=== PATIENT | female | born 1985 | race Caucasian/White ===

== ENCOUNTER 2019-05-11 02:46 | Inpatient (IN) | payer MEDICAID ==
[2019-05-11] MEDS ORDERED: Sodium Chloride 0.9% 10 ML SDV IV PRN (03:11)
[2019-05-11] MEDS ORDERED: Sodium Chloride 0.9% 2.5 ML Syringe FLUSH PRN (03:11)
[2019-05-11] MEDS ORDERED: Water For Irrigation,Sterile 1,000 ML Container IRR PRN (03:11)
[2019-05-11] MEDS ORDERED: Butorphanol 1 MG/ML SDV IVPUSH PRN (03:11)
[2019-05-11] MEDS ORDERED: Methylergonovine 0.2 MG/1 ML Amp IM PRN ×2 (03:11→11:47)
[2019-05-11] MEDS ORDERED: Misoprostol 200 MCG Tab PO PRN (03:11)
[2019-05-11] MEDS ORDERED: Sodium Chloride 0.9% 10 ML Syringe FLUSH PRN (03:11)
[2019-05-11] MEDS ORDERED: Tranexamic Acid 1,000 MG in Sodium Chloride 0.9% 100 ML IV PRN ×2 (03:11→11:47)
[2019-05-11] MEDS ORDERED: Carboprost Tromethamine 250 MCG/1 ML Amp IM PRN (03:11)
[2019-05-11] MEDS ORDERED: Nalbuphine 10 MG/1 ML Vial IVPUSH PRN (03:11)
[2019-05-11] MEDS ORDERED: Lidocaine 1% 50 ML MDV INJECT PRN (03:11)
[2019-05-11] MEDS ORDERED: cefTRIAXone 1 GM in Premix Bag 1 BAG IV SCH (03:15)
[2019-05-11] MEDS ORDERED: Oxytocin/0.9 % Sodium Chloride 30 UNIT/500 ML BAG IV SCH (03:15)
[2019-05-11] MEDS: Lactated Ringers 1,000 ML IV SCH ×3 (03:43→07:44)
[2019-05-11] MEDS ORDERED: fentaNYL 100 MCG/2 ML SDV ONE (04:03)
[2019-05-11] MEDS ORDERED: Ropivacaine HCl/PF 100 ML ONE (04:03)
--- NOTE | 2019-05-11 04:27 | PCM.PREANE ---
Preanesthetic Assessment - Anesthesia/Transfusion/Family Hx Anesthesia History: No Prior Anesthesia Family History of Anesthesia Reaction: No - Physical Assessment NPO Status Date: 05/10/19 NPO Status Time: 20:00 Height: 1.55 m Weight: 56.699 kg ASA Class: 1 - Lab Values: Laboratory Last Values WBC 17.02 K/uL (4.0-11.0) H 05/11/19 03:30 RBC 3.96 M/uL (4.30-5.90) L 05/11/19 03:30 Hgb 11.9 g/dL (12.0-16.0) L 05/11/19 03:30 Hct 35.3 % (36.0-46.0) L 05/11/19 03:30 MCV 89.1 fL (80.0-98.0) 05/11/19 03:30 MCH 30.1 pg (27.0-32.0) 05/11/19 03:30 MCHC 33.7 g/dL (31.0-37.0) 05/11/19 03:30 RDW Std Deviation 39.5 fl (28.0-62.0) 05/11/19 03:30 RDW Coeff of Moira 12 % (11.0-15.0) 05/11/19 03:30 Plt Count 242 K/uL (150-400) 05/11/19 03:30 MPV 9.10 fL (7.40-12.00) 05/11/19 03:30 Nucleated RBC % 0.0 /100WBC 05/11/19 03:30 Nucleated RBCs # 0 K/uL 05/11/19 03:30 Blood Type A POSITIVE 05/11/19 03:30 Antibody Screen NEGATIVE 05/11/19 03:30 - Allergies Allergies/Adverse Reactions: Allergies Allergy/AdvReac Type Severity Reaction Status Date / Time erythromycin base Allergy Hives Verified 01/11/15 14:38 mushroom Allergy Swelling Verified 01/11/15 14:38 Penicillins Allergy Hives Verified 04/02/19 20:08 - Acknowledgements Anesthesia Type Planned: Epidural Pt an Appropriate Candidate for the Planned Anesthesia: Yes Alternatives and Risks of Anesthesia Discussed w Pt/Guardian: Yes Pt/Guardian Understands and Agrees with Anesthesia Plan: Yes PreAnesthesia Questionnaire Other Genitourinary History: 'WEAK KIDNEYS" Other Neuro History: LEMERE'S SYNDROME - HOME MEDS Home Medications: Home Meds Vit 90/Iron Fum/Folic [ Formula] 1 tab PO DAILY 01/11/15 [ History] Cider Vinegar [Apple Cider Vinegar] 600 mg PO DAILY 04/02/19 [History] - CURRENT (IN HOUSE) MEDS Current Meds: Current Medications Butorphanol Tartrate (Stadol) 1 mg IVPUSH Q1H PRN PRN Reason: Pain Carboprost Tromethamine (Hemabate Ds) 250 mcg IM ASDIRECTED PRN PRN Reason: Post Hemorrhage Lactated Ringer's (Ringers, Lactated) 1,000 mls @ 150 mls/hr IV ASDIRECTED [facility] Last Admin: 05/11/19 03:43 Dose: 150 mls/hr Oxytocin/Sodium Chloride (Oxytocin 30 Unit/500 Ml-Ns) 30 unit in 500 mls @ 500 mls/hr IV TITRATE [facility] Tranexamic Acid 1,000 mg/ (Sodium Chloride) 110 mls @ 660 mls/hr IV ONETIME PRN PRN Reason: Bleeding Ceftriaxone Sodium/Dextrose 1 (gm/ Premix) 50 mls @ 100 mls/hr IV Q24H [facility] Last Admin: 05/11/19 03:43 Dose: 100 mls/hr Lidocaine HCl (Xylocaine 1%) 50 ml INJECT ONETIME PRN PRN Reason: Laceration repair Methylergonovine Maleate (Methergine) 0.2 mg IM ASDIRECTED PRN PRN Reason: Post Hemorrhage Misoprostol (Cytotec) 200 mcg PO ONETIME PRN PRN Reason: Post Hemorrhage Nalbuphine HCl (Nubain) 10 mg IVPUSH Q1H PRN PRN Reason: Pain (severe 7-10) Sodium Chloride (Saline Flush) 10 ml FLUSH ASDIRECTED PRN PRN Reason: Keep Vein Open Sodium Chloride (Saline Flush) 2.5 ml FLUSH ASDIRECTED PRN PRN Reason: Keep Vein Open Sodium Chloride (Normal Saline) 10 ml IV ASDIRECTED PRN PRN Reason: IV Use Sterile Water (Sterile Water For Irrigation) 1,000 ml IRR ASDIRECTED PRN PRN Reason: delivery Discontinued Medications Fentanyl (Sublimaze) Confirm Administered Dose 100 mcg .ROUTE .STK-MED ONE Stop: 05/11/19 04:04 Ropivacaine (Naropin 0.2%) Confirm Administered Dose 100 mls @ as directed .ROUTE .STK-MED ONE Stop: 05/11/19 04:04
--- NOTE | 2019-05-11 04:32 | PCM.PRNOTE ---
- Free Text/Narrative Note: Anes Note Patient requests epidural fro L&D. Sitting position. Sterile technique. L3-L4 midline approach. Chloraprep scrub to lumbar area. Sterile fenestrated drape applied. Epidural space easily achieved single attempt using BERNARD technique. BERNARD at 3 cm. Cath threaded 5 cm with ease. Cath secured at 9 cm using sterile clear adhesive dressing. 0420 test 3 cc 1.5% lido with epi negative. 0425 load 10 cc 0.2% ropivicaine with 1 mcg cc fentanyl in slow divided doses. 0428 pump started wtih 90 cc same solution. Rate is 8 cc hr with 6 cc bolus q 20 min prn. Jimmie well. Time with patient [id number] Darian Pino SLACKLINE OPERATOR
--- NOTE | 2019-05-11 11:46 | PCM.DEL ---
L & D Note - General Info Date of Service: 05/11/19 Mother's Due Date: 05/20/19 - Delivery Note Labor: Spontaneous, Augmented by ARM Infant Delivery Method: Spontaneous Vaginal Delivery-Single Presentation: Left Occiput Anterior (LAKSHMI) Nuchal Cord: None Prep: Other Anesthesia Type: None Amniotic Fluid Description: Meconium Stained Episiotomy Type: None Laceration: None Placenta: Manual Removal Cord: 3 Vessels Estimated Blood Loss: 300 Resuscitation Needed: No Lemmon: Suctioned Score 1 min: 9 Score 5 min: 9 Delivery Comments (Free Text/Narrative):: Liveborn male, placenta in left cornua, manually extracted, continue Rocephin, (initiated for GBS prophylaxis.) - General Info Date of Service: 05/11/19 - Patient Data Weight - Most Recent: 56.699 kg Lab Results Last 24 Hours: Laboratory Results - last 24 hr 05/11/19 05/11/19 05/11/19 Range/Units 03:30 03:30 04:54 WBC 17.02 H (4.0-11.0) K/uL RBC 3.96 L (4.30-5.90) M/uL Hgb 11.9 L (12.0-16.0) g/dL Hct 35.3 L (36.0-46.0) % MCV 89.1 (80.0-98.0) fL MCH 30.1 (27.0-32.0) pg MCHC 33.7 (31.0-37.0) g/dL RDW Std Deviation 39.5 (28.0-62.0) fl RDW Coeff of Moira 12 (11.0-15.0) % Plt Count 242 (150-400) K/uL MPV 9.10 (7.40-12.00) fL Nucleated RBC % 0.0 /100WBC Nucleated RBCs # 0 K/uL Urine Opiates Screen NEGATIVE (NEGATIVE) Ur Oxycodone Screen NEGATIVE (NEGATIVE) Urine Methadone Screen NEGATIVE (NEGATIVE) Ur Barbiturates Screen NEGATIVE (NEGATIVE) Ur Phencyclidine Scrn NEGATIVE (NEGATIVE) Ur Amphetamine Screen POSITIVE (NEGATIVE) U Methamphetamines Scrn POSITIVE (NEGATIVE) U Benzodiazepines Scrn NEGATIVE (NEGATIVE) U Cocaine Metab Screen NEGATIVE (NEGATIVE) U Marijuana (THC) Screen POSITIVE (NEGATIVE) Blood Type A POSITIVE Antibody Screen NEGATIVE Med Orders - Current: Current Medications Butorphanol Tartrate (Stadol) 1 mg IVPUSH Q1H PRN PRN Reason: Pain Carboprost Tromethamine (Hemabate Ds) 250 mcg IM ASDIRECTED PRN PRN Reason: Post Hemorrhage Lactated Ringer's (Ringers, Lactated) 1,000 mls @ 150 mls/hr IV ASDIRECTED [facility] Last Admin: 05/11/19 07:44 Dose: 150 mls/hr Oxytocin/Sodium Chloride (Oxytocin 30 Unit/500 Ml-Ns) 30 unit in 500 mls @ 500 mls/hr IV TITRATE [facility] Tranexamic Acid 1,000 mg/ (Sodium Chloride) 110 mls @ 660 mls/hr IV ONETIME PRN PRN Reason: Bleeding Ceftriaxone Sodium/Dextrose 1 (gm/ Premix) 50 mls @ 100 mls/hr IV Q24H [facility] Last Admin: 05/11/19 03:43 Dose: 100 mls/hr Lidocaine HCl (Xylocaine 1%) 50 ml INJECT ONETIME PRN PRN Reason: Laceration repair Methylergonovine Maleate (Methergine) 0.2 mg IM ASDIRECTED PRN PRN Reason: Post Hemorrhage Misoprostol (Cytotec) 200 mcg PO ONETIME PRN PRN Reason: Post Hemorrhage Nalbuphine HCl (Nubain) 10 mg IVPUSH Q1H PRN PRN Reason: Pain (severe 7-10) Sodium Chloride (Saline Flush) 10 ml FLUSH ASDIRECTED PRN PRN Reason: Keep Vein Open Sodium Chloride (Saline Flush) 2.5 ml FLUSH ASDIRECTED PRN PRN Reason: Keep Vein Open Sodium Chloride (Normal Saline) 10 ml IV ASDIRECTED PRN PRN Reason: IV Use Sterile Water (Sterile Water For Irrigation) 1,000 ml IRR ASDIRECTED PRN PRN Reason: delivery Discontinued Medications Fentanyl (Sublimaze) Confirm Administered Dose 100 mcg .ROUTE .STK-MED ONE Stop: 05/11/19 04:04 Ropivacaine (Naropin 0.2%) Confirm Administered Dose 100 mls @ as directed .ROUTE .STK-MED ONE Stop: 05/11/19 04:04 - Problem List & Annotations (1) Vaginal delivery SNOMED Code(s): 032107198 Code(s): O80 - ENCOUNTER FOR FULL-TERM UNCOMPLICATED DELIVERY Status: Acute Current Visit: Yes (2) Retained placenta SNOMED Code(s): 705224304 Code(s): O73.0 - RETAINED PLACENTA WITHOUT HEMORRHAGE Status: Acute Current Visit: Yes - Problem List Review Problem List Initiated/Reviewed/Updated: Yes - My Orders Last 24 Hours: My Active Orders 05/11/19 03:11 Patient Status [ADT] Routine Heart Tones [RC] CONTINUOUS Non Stress Test [RC] PER UNIT ROUTINE May Shower [RC] ASDIRECTED Notify Provider [RC] PRN Up ad Roslyn [RC] ASDIRECTED Vaginal Exam [RC] PRN Vital Signs [RC] PER UNIT ROUTINE Butorphanol [Stadol] 1 mg IVPUSH Q1H PRN Carboprost Tromethamine [Hemabate DS] 250 mcg IM ASDIRECTED PRN Lidocaine 1% [Xylocaine 1%] 50 ml INJECT ONETIME PRN Methylergonovine [Methergine] 0.2 mg IM ASDIRECTED PRN Nalbuphine [Nubain] 10 mg IVPUSH Q1H PRN Sodium Chloride 0.9% [Normal Saline] 10 ml IV ASDIRECTED PRN Sodium Chloride 0.9% [Saline Flush] 10 ml FLUSH ASDIRECTED PRN Sodium Chloride 0.9% [Saline Flush] 2.5 ml FLUSH ASDIRECTED PRN Tranexamic Acid [Cyklokapron] 1,000 mg Sodium Chloride 0.9% [Normal Saline] 100 ml IV ONETIME Water For Irrigation,Sterile [Sterile Water for Irrigation] 1,000 ml IRR ASDIRECTED PRN miSOPROStoL [Cytotec] 200 mcg PO ONETIME PRN Scalp Electrode [WOMSER] Per Unit Routine Peripheral IV Insertion Adult [OM.PC] Routine Resuscitation Status Routine 05/11/19 03:15 Lactated Ringers [Ringers, Lactated] 1,000 ml IV ASDIRECTED Oxytocin/0.9 % Sodium Chloride [Oxytocin 30 Unit/500 ML-NS] 30 unit in 500 ml IV TITRATE cefTRIAXone [Rocephin in Dextrose,Iso-Osm 1 GM/50 ML] 1 gm Premix Bag 1 bag IV Q24H 05/11/19 03:30 RPR (SYPHILIS SERO) W/ RFLX [REF] Routine 05/11/19 09:01 DRUG SCR 10 W REF CONF SERUM [REF] Urgent
[2019-05-11] MEDS ORDERED: Acetaminophen 500 MG Tab PO PRN (11:47)
[2019-05-11] MEDS ORDERED: Ibuprofen 400 MG Tab PO PRN (11:47)
[2019-05-11] MEDS ORDERED: Witch Hazel Medicated Pads 40/Jar TOP PRN (11:47)
[2019-05-11] MEDS ORDERED: Lanolin 100% Cream 7 GM Tube TOP PRN (11:47)
[2019-05-11] MEDS ORDERED: Docusate Sodium 100 MG Cap PO PRN (11:47)
[2019-05-11] MEDS ORDERED: Benzocaine/Menthol 20%-0.5% Spray 78 GM Cannister TOP PRN (11:47)
[2019-05-11] MEDS ORDERED: Bisacodyl 10 MG Supp RECTAL PRN (11:47)
--- NOTE | 2019-05-11 14:29 | OR ---
SURGEON: Jolene Arora M.D. DATE OF PROCEDURE: 05/11/2019 PREOPERATIVE DIAGNOSES: 38-5/7 weeks' intrauterine , active spontaneous labor, substance abuse. POSTOPERATIVE DIAGNOSES: 38-5/7 weeks' intrauterine , active spontaneous labor, substance abuse, and retained placenta. ANESTHESIA: Epidural. ESTIMATED BLOOD LOSS: 300 mL. FINDINGS: Live-born male. score 9 and 9. Weight is pending at the time of dictation. Placenta was adherent to the left uterine cornua and was manually extracted with no remnant on manual examination. COMPLICATIONS: None known. DISPOSITION: Stable to Recovery. BRIEF HISTORY: This is a 33-year-old female, G1, P0. She presents at 38-5/7 weeks' gestation. She has had occasional limited care with Dr. Vela, and she presents in active spontaneous labor, initially 3 to 4 cm dilated. She was admitted. She received an epidural for pain control when she was 6 to 7. She was known to be group B strep positive and based on the penicillin allergy, which was non- anaphylaxis and sensitivity of group B strep culture, she was started on Rocephin. After the Rocephin had been given for 4 hours, artificial rupture of membranes was performed. Thick meconium was noted. The patient agreed to urine drug screen due to history of substance abuse and incarceration and limited care, and she did agree. This was positive for amphetamines, methamphetamines, and THC. She denies all but THC. Therefore, confirmatory test was sent. She had overall category 1 heart tones throughout labor. She progressed to complete. DESCRIPTION OF PROCEDURE: With the patient in dorsal lithotomy position, under adequate epidural analgesia, the patient pushed over a 30-minute time period to a 5+ station, at which time, the head was delivered spontaneously and atraumatically over the perineum with support. The was bulb suctioned on the perineum with subsequent delivery of the infant's shoulders and body without any difficulty. The was further bulb suctioned. The face was cleaned with a towel as well as the nares. The was handed to the mother in the presence of the nurse and respiratory therapist in attendance at delivery. The infant was a liveborn male. scores of 9 and 9. Weight is pending at the time of dictation. After the cord had ceased to pulsate, it was doubly clamped and cut. Cord blood was collected for cord ABGs as well as routine cord blood sampling. Pitocin was initiated after delivery of the to assist with delivery of the placenta, which did not progress whatsoever with fundal massage as well as Pitocin. Therefore, I did proceed with manual extraction of the placenta. It was firmly adherent to the left cornu. However, I was able to define a plane and remove the entirety of the placenta with careful thorough evaluation to confirm that there were no retained products. Fundal massage was then performed. There was minimal bleeding. Upon inspection of the pelvis and perineum, there were no periurethral, vaginal sidewall, cervical, rectal, or perineal lacerations. EBL was 300 mL. There were no known complications. Mother and baby remained in LDR in good condition. ROM ARCHER /[id number]
[2019-05-11] MEDS: Ibuprofen 800 MG Tab PO PRN (16:05)
--- NOTE | 2019-05-11 17:11 | PCM48HPAN ---
Post Anesthesia Note - EVALUATION WITHIN 48HRS OF ANESTHETIC Vital Signs in Normal Range: Yes Patient Participated in Evaluation: Yes Respiratory Function Stable: Yes Airway Patent: Yes Cardiovascular Function Stable: Yes Hydration Status Stable: Yes Pain Control Satisfactory: Yes Nausea and Vomiting Control Satisfactory: Yes Mental Status Recovered: Yes Vital Signs: VSS - COMMENTS/OBSERVATIONS Free Text/Narrative:: Did well. No problems noted post.
[2019-05-12] MEDS: Ibuprofen 800 MG Tab PO PRN (01:18)
[2019-05-12] MEDS ORDERED: cefTRIAXone 1 GM in Premix Bag 1 BAG IV ONE (04:00)
[2019-05-12] MEDS: Acetaminophen 500 MG Tab PO PRN (04:19)
--- NOTE | 2019-05-12 08:32 | PCM.PNPP ---
- General Info Date of Service: 05/12/19 Subjective Update: Patient without complaints today. Minimal lochia. Functional Status: Reports: Pain Controlled, Tolerating Diet, Ambulating, Urinating - Review of Systems General: Reports: No Symptoms HEENT: Reports: No Symptoms Pulmonary: Reports: No Symptoms Cardiovascular: Reports: No Symptoms Gastrointestinal: Reports: No Symptoms Genitourinary: Reports: No Symptoms Musculoskeletal: Reports: No Symptoms Skin: Reports: No Symptoms Neurological: Reports: No Symptoms Psychiatric: Reports: No Symptoms - Patient Data Vital Signs - Most Recent: Last Vital Signs Temp 36.6 C 05/12/19 05:00 Pulse 67 05/12/19 05:00 Resp 18 05/12/19 05:00 BP 134/81 05/12/19 05:00 Pulse Ox 98 05/12/19 05:00 Weight - Most Recent: 56.699 kg Lab Results - Last 24 Hours: Laboratory Results - last 24 hr 05/11/19 05/12/19 Range/Units 12:45 04:49 Hgb 10.1 L (12.0-16.0) g/dL Hct 30.3 L (36.0-46.0) % Cord ABG pH 7.183 (7.18-7.38) Cord ABG Base Excess -9 (-10--2) Cord VBG pH 7.225 L (7.25-7.45) Cord VBG Base Excess -8 (-10--2) Med Orders - Current: Current Medications Acetaminophen (Tylenol Extra Strength) 500 mg PO Q4H PRN PRN Reason: Pain Acetaminophen (Tylenol Extra Strength) 1,000 mg PO Q4H PRN PRN Reason: Pain Last Admin: 05/12/19 04:19 Dose: 1,000 mg Benzocaine/Menthol (Dermoplast Pain Relief 20%-0.5% [place]) 78 gm TOP ASDIRECTED PRN PRN Reason: Perineal Comfort Measure Last Admin: 05/11/19 16:04 Dose: 1 canister Bisacodyl (Dulcolax) 10 mg RECTAL ONETIME PRN PRN Reason: Constipation Docusate Sodium (Colace) 100 mg PO BID PRN PRN Reason: Constipation Last Admin: 05/11/19 20:23 Dose: 100 mg Emollient Ointment (Lansinoh Hpa) 0 gm TOP ASDIRECTED PRN PRN Reason: Sore Nipples Tranexamic Acid 1,000 mg/ (Sodium Chloride) 110 mls @ 660 mls/hr IV ONETIME PRN PRN Reason: Bleeding Ibuprofen (Motrin) 400 mg PO Q4H PRN PRN Reason: Pain Ibuprofen (Motrin) 800 mg PO Q6H PRN PRN Reason: Pain Last Admin: 05/12/19 01:18 Dose: 800 mg Methylergonovine Maleate (Methergine) 0.2 mg IM ONETIME PRN PRN Reason: Excessive Vaginal Bleeding Blade Crouch (Tucks) 1 pad TOP ASDIRECTED PRN PRN Reason: comfort care Last Admin: 05/11/19 16:05 Dose: 1 tub Discontinued Medications Butorphanol Tartrate (Stadol) 1 mg IVPUSH Q1H PRN PRN Reason: Pain Carboprost Tromethamine (Hemabate Ds) 250 mcg IM ASDIRECTED PRN PRN Reason: Post Hemorrhage Fentanyl (Sublimaze) Confirm Administered Dose 100 mcg .ROUTE .STK-MED ONE Stop: 05/11/19 04:04 Lactated Ringer's (Ringers, Lactated) 1,000 mls @ 150 mls/hr IV ASDIRECTED [facility] Last Admin: 05/11/19 07:44 Dose: 150 mls/hr Oxytocin/Sodium Chloride (Oxytocin 30 Unit/500 Ml-Ns) 30 unit in 500 mls @ 500 mls/hr IV TITRATE [facility] Last Infusion: 05/11/19 11:24 Dose: 500 mls/hr Tranexamic Acid 1,000 mg/ (Sodium Chloride) 110 mls @ 660 mls/hr IV ONETIME PRN PRN Reason: Bleeding Ceftriaxone Sodium/Dextrose 1 (gm/ Premix) 50 mls @ 100 mls/hr IV Q24H [facility] Last Admin: 05/11/19 03:43 Dose: 100 mls/hr Ropivacaine (Naropin 0.2%) Confirm Administered Dose 100 mls @ as directed .ROUTE .STK-MED ONE Stop: 05/11/19 04:04 Ceftriaxone Sodium/Dextrose 1 (gm/ Premix) 50 mls @ 100 mls/hr IV ONETIME ONE Stop: 05/12/19 04:29 Last Admin: 05/12/19 03:18 Dose: 100 mls/hr Lidocaine HCl (Xylocaine 1%) 50 ml INJECT ONETIME PRN PRN Reason: Laceration repair Methylergonovine Maleate (Methergine) 0.2 mg IM ASDIRECTED PRN PRN Reason: Post Hemorrhage Misoprostol (Cytotec) 200 mcg PO ONETIME PRN PRN Reason: Post Hemorrhage Nalbuphine HCl (Nubain) 10 mg IVPUSH Q1H PRN PRN Reason: Pain (severe 7-10) Sodium Chloride (Saline Flush) 10 ml FLUSH ASDIRECTED PRN PRN Reason: Keep Vein Open Sodium Chloride (Saline Flush) 2.5 ml FLUSH ASDIRECTED PRN PRN Reason: Keep Vein Open Sodium Chloride (Normal Saline) 10 ml IV ASDIRECTED PRN PRN Reason: IV Use Sterile Water (Sterile Water For Irrigation) 1,000 ml IRR ASDIRECTED PRN PRN Reason: delivery Last Admin: 05/11/19 11:15 Dose: 1,000 ml - Interaction Infant Disposition, : to Nursery Interaction: Unable to Hold at this Time Support Person: Significant Other - Recovery Exam Fundal Tone: Firm Fundal Level: 2 Fingerbreadths Below Umbilicus Fundal Placement: Midline Lochia Amount: Small Lochia Color: Rubra/Red Bladder Status: Voiding Urinary Elimination: Voided - Exam General: Alert, Oriented Neck: Supple Lungs: Clear to Auscultation, Normal Respiratory Effort Cardiovascular: Regular Rate, Regular Rhythm GI/Abdominal Exam: Soft, Non-Tender Extremities: No Pedal Edema Skin: Warm, Dry, Intact Neurological: No New Focal Deficit Psy/Mental Status: Alert, Normal Affect, Normal Mood - Problem List & Annotations (1) Retained placenta SNOMED Code(s): 472338363 Code(s): O73.0 - RETAINED PLACENTA WITHOUT HEMORRHAGE Status: Acute Current Visit: Yes (2) Vaginal delivery SNOMED Code(s): 050814928 Code(s): O80 - ENCOUNTER FOR FULL-TERM UNCOMPLICATED DELIVERY Status: Acute Current Visit: Yes - Problem List Review Problem List Initiated/Reviewed/Updated: Yes - Assessment Assessment:: PPD#1 s/p and manual extraction of placenta - Plan Plan:: 1. Manual extraction of placenta - intact on exam by Dr. Arora. Minimal lochia, no concern for retained products of conception. 2. Dispo - patient desires discharge home today. Reviewed discharge instructions. All questions answered.
[2019-05-13] MEDS: Ibuprofen 800 MG Tab PO PRN (00:17)
[2019-05-13] MEDS: Acetaminophen 500 MG Tab PO PRN (04:27)
--- NOTE | 2019-05-13 08:12 | PCM.PNPP ---
- General Info Date of Service: 05/13/19 Subjective Update: Patient without complaints today. Minimal lochia. Functional Status: Reports: Pain Controlled, Tolerating Diet, Ambulating, Urinating - Review of Systems General: Reports: No Symptoms HEENT: Reports: No Symptoms Pulmonary: Reports: No Symptoms Cardiovascular: Reports: No Symptoms Gastrointestinal: Reports: No Symptoms Genitourinary: Reports: No Symptoms Musculoskeletal: Reports: No Symptoms Skin: Reports: No Symptoms Neurological: Reports: No Symptoms Psychiatric: Reports: No Symptoms - Patient Data Vital Signs - Most Recent: Last Vital Signs Temp 36.6 C 05/13/19 04:15 Pulse 69 05/13/19 04:15 Resp 16 05/13/19 04:15 BP 111/78 05/13/19 04:15 Pulse Ox 98 05/13/19 04:15 Weight - Most Recent: 56.699 kg Med Orders - Current: Current Medications Acetaminophen (Tylenol Extra Strength) 500 mg PO Q4H PRN PRN Reason: Pain Acetaminophen (Tylenol Extra Strength) 1,000 mg PO Q4H PRN PRN Reason: Pain Last Admin: 05/13/19 04:27 Dose: 1,000 mg Benzocaine/Menthol (Dermoplast Pain Relief 20%-0.5% [place]) 78 gm TOP ASDIRECTED PRN PRN Reason: Perineal Comfort Measure Last Admin: 05/11/19 16:04 Dose: 1 canister Bisacodyl (Dulcolax) 10 mg RECTAL ONETIME PRN PRN Reason: Constipation Docusate Sodium (Colace) 100 mg PO BID PRN PRN Reason: Constipation Last Admin: 05/11/19 20:23 Dose: 100 mg Emollient Ointment (Lansinoh Hpa) 0 gm TOP ASDIRECTED PRN PRN Reason: Sore Nipples Tranexamic Acid 1,000 mg/ (Sodium Chloride) 110 mls @ 660 mls/hr IV ONETIME PRN PRN Reason: Bleeding Ibuprofen (Motrin) 400 mg PO Q4H PRN PRN Reason: Pain Ibuprofen (Motrin) 800 mg PO Q6H PRN PRN Reason: Pain Last Admin: 05/13/19 00:17 Dose: 800 mg Methylergonovine Maleate (Methergine) 0.2 mg IM ONETIME PRN PRN Reason: Excessive Vaginal Bleeding Witch Willa (Tucks) 1 pad TOP ASDIRECTED PRN PRN Reason: comfort care Last Admin: 05/11/19 16:05 Dose: 1 tub Discontinued Medications Butorphanol Tartrate (Stadol) 1 mg IVPUSH Q1H PRN PRN Reason: Pain Carboprost Tromethamine (Hemabate Ds) 250 mcg IM ASDIRECTED PRN PRN Reason: Post Hemorrhage Fentanyl (Sublimaze) Confirm Administered Dose 100 mcg .ROUTE .[facility] ONE Stop: 05/11/19 04:04 Lactated Ringer's (Ringers, Lactated) 1,000 mls @ 150 mls/hr IV ASDIRECTED [facility] Last Admin: 05/11/19 07:44 Dose: 150 mls/hr Oxytocin/Sodium Chloride (Oxytocin 30 Unit/500 Ml-Ns) 30 unit in 500 mls @ 500 mls/hr IV TITRATE [facility] Last Infusion: 05/11/19 11:24 Dose: 500 mls/hr Tranexamic Acid 1,000 mg/ (Sodium Chloride) 110 mls @ 660 mls/hr IV ONETIME PRN PRN Reason: Bleeding Ceftriaxone Sodium/Dextrose 1 (gm/ Premix) 50 mls @ 100 mls/hr IV Q24H [facility] Last Admin: 05/11/19 03:43 Dose: 100 mls/hr Ropivacaine (Naropin 0.2%) Confirm Administered Dose 100 mls @ as directed .ROUTE .[facility] ONE Stop: 05/11/19 04:04 Ceftriaxone Sodium/Dextrose 1 (gm/ Premix) 50 mls @ 100 mls/hr IV ONETIME ONE Stop: 05/12/19 04:29 Last Admin: 05/12/19 03:18 Dose: 100 mls/hr Lidocaine HCl (Xylocaine 1%) 50 ml INJECT ONETIME PRN PRN Reason: Laceration repair Methylergonovine Maleate (Methergine) 0.2 mg IM ASDIRECTED PRN PRN Reason: Post Hemorrhage Misoprostol (Cytotec) 200 mcg PO ONETIME PRN PRN Reason: Post Hemorrhage Nalbuphine HCl (Nubain) 10 mg IVPUSH Q1H PRN PRN Reason: Pain (severe 7-10) Sodium Chloride (Saline Flush) 10 ml FLUSH ASDIRECTED PRN PRN Reason: Keep Vein Open Sodium Chloride (Saline Flush) 2.5 ml FLUSH ASDIRECTED PRN PRN Reason: Keep Vein Open Sodium Chloride (Normal Saline) 10 ml IV ASDIRECTED PRN PRN Reason: IV Use Sterile Water (Sterile Water For Irrigation) 1,000 ml IRR ASDIRECTED PRN PRN Reason: delivery Last Admin: 05/11/19 11:15 Dose: 1,000 ml - Infant Interaction Disposition, : at Bedside Support Person: Mother - Recovery Exam Fundal Tone: Firm Fundal Level: 3 Fingerbreadths Below Umbilicus Fundal Placement: Midline Lochia Amount: Scant Lochia Color: Rubra/Red Bladder Status: Voiding Urinary Elimination: Voided - Exam General: Alert, Oriented Neck: Supple Lungs: Clear to Auscultation, Normal Respiratory Effort Cardiovascular: Regular Rate, Regular Rhythm GI/Abdominal Exam: Soft, Non-Tender Extremities: Non-Tender Skin: Warm, Dry, Intact Neurological: No New Focal Deficit Psy/Mental Status: Alert, Normal Affect, Normal Mood - Problem List & Annotations (1) Retained placenta SNOMED Code(s): 474583817 Code(s): O73.0 - RETAINED PLACENTA WITHOUT HEMORRHAGE Status: Acute Current Visit: Yes (2) Vaginal delivery SNOMED Code(s): 079630154 Code(s): O80 - ENCOUNTER FOR FULL-TERM UNCOMPLICATED DELIVERY Status: Acute Current Visit: Yes - Problem List Review Problem List Initiated/Reviewed/Updated: Yes - My Orders Last 24 Hours: My Active Orders 05/12/19 08:33 Ready for Discharge [RC] PER UNIT ROUTINE 05/13/19 08:10 Ready for Discharge [RC] PER UNIT ROUTINE - Assessment Assessment:: PPD#2 s/p and manual extraction of placenta - Plan Plan:: 1. Manual extraction of placenta - intact on exam by Dr. Arora. Minimal lochia, no concern for retained products of conception. 2. Methamphetamine, marijuana use - child protective services involved, plan in place. 3. Dispo - patient desires discharge home today. Reviewed discharge instructions. All questions answered.
[2019-05-13 13:11] VITALS: BP 106/60; PULSE 63
== END 2019-05-13 16:10 | disposition home or self-care (01) | DRG 807 ==
LOC: MW.OBCHECK 02:46 → MW.OB 02:47 → MW.OBCHECK 03:11 → OBSVTOIN 11:18 → MW.OB 17:22
PROVIDERS: ADMIT Obstetrics & Gynecology; ATTEND Obstetrics & Gynecology
PROC: 10E0XZZ Delivery of Products of Conception, External Approach (ICD-10-PCS; principal; 2019-05-11)
PROC: 10907ZC Drainage of Amniotic Fluid, Therapeutic from Products of Conception, Via Natural or Artificial Opening (ICD-10-PCS; 2019-05-11)
PROC: 3E0R3BZ Introduction of Anesthetic Agent into Spinal Canal, Percutaneous Approach (ICD-10-PCS; 2019-05-11)
DX: O99.824 Streptococcus B carrier state complicating childbirth (principal); Z37.0 Single live birth; O77.0 Labor and delivery complicated by meconium in amniotic fluid; Z3A.38 38 weeks gestation of pregnancy; Z88.0 Allergy status to penicillin; Z88.1 Allergy status to other antibiotic agents; Z91.018 Allergy to other foods; O99.324 Drug use complicating childbirth; F15.10 Other stimulant abuse, uncomplicated; F12.10 Cannabis abuse, uncomplicated; O73.0 Retained placenta without hemorrhage
CPT/HCPCS: 01967; 36415; 51702; 59025; 59409; 80305-QW; 80307; 82803; 85014; 85018; 85027; 86592; 86593; 86850; 86900; 86901; 88307; A9270-GY; J0696; J2590; J2795; J3010; J7120

== ENCOUNTER 2020-03-15 18:40 | Emergency (ER) | payer MEDICAID ==
[2020-03-15] MEDS ORDERED: Sodium Chloride 0.9% 2.5 ML Syringe FLUSH PRN (19:13)
[2020-03-15] MEDS ORDERED: Acetaminophen 500 MG Tab PO ONE (19:13)
[2020-03-15] MEDS ORDERED: Sodium Chloride 0.9% 10 ML Syringe FLUSH PRN (19:13)
--- NOTE | 2020-03-15 19:21 | EDM.PDOC ---
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 Of note, patient reports that she recently joined a gym and today she did a lot of walking and is unsure whether or not the pain is secondary to overexertion. Patient reports the pain however is intermittent in nature, radiates down to her pelvis, and is currently a 4-5 out of 10. Patient reports that the pain increases with standing straight or walking. Patient denies any recent fevers, shakes, chills, nausea, vomiting, diarrhea, dysuria, frequency, urgency, chest pain, shortness of breath. Patient has any change in bowel or bladder habits. Patient has any hematuria. Patient denies any melena or bright red blood per rectum. Patient has any vaginal discharge or vaginal bleeding. Patient denies any history of kidney stones in the past. Review of systems: As per history of present illness and below otherwise all systems reviewed and negative. Past medical history: As per history of present illness and as reviewed below otherwise noncontributory. Surgical history: As per history of present illness and as reviewed below otherwise noncontributory. Social history: No reported history of drug or alcohol abuse. Admits to 3 cigarettes/day Family history: As per history of present illness and as reviewed below otherwise noncontributory. Physical exam: Constitutional: Patient is oriented to person, place, and time. Appears well- developed and well-nourished. No distress. HEENT: Moist mucous membranes Head: Normocephalic and atraumatic Eyes: Right eye exhibits no discharge. Left eye exhibits no discharge. No scleral icterus Neck: Normal range of motion. No tracheal deviation present. Cardiovascular: Normal rate and regular rhythm. Pulmonary: Effort normal, no respiratory distress. Abd: Soft, nondistended, no rebound/guarding, no psoas or obturator signs, no tenderness at Mcberney's point, no Yan's sign. Pt does not present with an exam that would be consistent with an acute surgical abdomen at this time. Nontender to palpation in her abdomen however she does have tenderness to palpation in her left suprapubic region. Musculoskeletal: Normal range of motion Neurologic: Alert and oriented to person, place and time. Skin: Robinette, warm and dry. Psychiatric: Normal mood and affect. Behavior is normal. Judgment and thought content normal. Nursing note and vital signs have been reviewed Patient's ER physical exam is significant for tenderness palpation to her left suprapubic region. Patient has mild tenderness and discomfort with flexion extension abduction abduction of her hip. This patient was seen and evaluated during the 2019 SARS-CoV-2 novel coronavirus pandemic period. Community viral transmission is ongoing at time of this encounter and the emergency department is operating under pandemic response procedures. Diagnostics: CBC, CMP, urinalysis, beta hCG, ultrasound Therapeutics: Tylenol 1 g p.o. Assessment and plan: This is a 34-year-old female who presents ER today secondary to pain to her left suprapubic region. Patient is approximate 12 weeks by dates. She is 2 para 1. Patient denies any urinary or vaginal symptoms at this time. It is unclear whether or not this is related to her or related to musculoskeletal pain from increased exertion working out at the gym. 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 Patient be given Tylenol to assist with pain. Patient's labs and ultrasound were all unremarkable. Patient reports that she does feel improved after taking the acetaminophen. Patient's pain is likely related to broad ligament pain versus musculoskeletal pain. Patient was reassured and instructed to follow-up with her primary care physician. Reassessment at the time of disposition demonstrates that the patient is in no acute distress. The patient has remained stable throughout the entire ED visit and is without objective evidence for acute process requiring urgent intervention or hospitalization. The patient is stable for discharge, counseling is provided as documented above, discussed symptomatic treatment and specific conditions for return. I have spoken with the patient/caregiver and discussed todays findings, in addition to providing specific details for the plan of care. Questions are answered and there is agreement with the plan. Definitive disposition and diagnosis as appropriate pending reevaluation and review of above. Left Lower Abdomen Pain Score (Numeric/FACES): 3 - Related Data Allergies Allergy/AdvReac Type Severity Reaction Status Date / Time erythromycin base Allergy Hives Verified 03/15/20 18:46 mushroom Allergy Swelling Verified 03/15/20 18:46 Penicillins Allergy Hives Verified 03/15/20 18:46 Home Meds: Home Meds Vit 90/Iron Fum/Folic [ Formula] 1 tab PO DAILY 01/11/15 [History] Cider Vinegar [Apple Cider Vinegar] 600 mg PO DAILY 04/02/19 [History] Past Medical History HEENT History: Reports: None Cardiovascular History: Reports: None Respiratory History: Reports: None Gastrointestinal History: Reports: None Genitourinary History: Reports: Pyelonephritis Other Genitourinary History: 'WEAK KIDNEYS" 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: Musculoskeletal History: Reports: None Other Neuro History: LEMERE'S SYNDROME Psychiatric History: Reports: Anxiety Endocrine/Metabolic History: Reports: None Hematologic History: Reports: None Immunologic History: Reports: None Oncologic (Cancer) History: Reports: None Dermatologic History: Reports: Eczema - Infectious Disease History Infectious Disease History: Reports: Chicken Pox, Measles - Past Surgical History HEENT Surgical History: Reports: None GI Surgical History: Reports: None Female Surgical History: Reports: None Social & Family History - Family History HEENT: Reports: None Cardiac: Reports: None Respiratory: Reports: None GI: Reports: None : Reports: None OBGYN: Reports: , Other (See Below) Other OBGYN Family History: PCOS Musculoskeletal: Reports: Arthritis, Back pain, Chronic Neurological: Reports: Migraines, Parkinson's Psychiatric: Reports: Anxiety Endocrine/Metabolic: Reports: None Hematologic: Reports: None Immunologic: Reports: None Dermatologic: Reports: None Oncologic: Reports: Colon - Tobacco Use Tobacco Use Status *Q: Current Every Day Tobacco User Years of Tobacco use: 13 Packs/Tins Daily: 0 Tobacco Use Comment: Pt is down to 3 cigarettes a day, trying to quit smoking due to . Pt educated about Quits. - Caffeine Use Caffeine Use: Reports: Coffee - Recreational Drug Use Recreational Drug Use: Yes Drug Use in Last 12 Months: Yes Recreational Drug Type: Reports: Marijuana/Hashish ED ROS GENERAL - Review of Systems Review Of Systems: See Below ED EXAM, GENERAL - Physical Exam Exam: See Below Course - Vital Signs Last Recorded V/S: Last Vital Signs Temp 98.8 F 03/15/20 18:47 Pulse 80 03/15/20 20:39 Resp 16 01/04/21 20:39 BP 103/65 03/15/20 20:39 Pulse Ox 98 03/15/20 20:39 - Orders/Labs/Meds Orders: Active Orders 24 hr Category Date Time Status Sodium Chloride 0.9% [Saline Flush] Med 03/15/20 19:13 Active 10 ml FLUSH ASDIRECTED PRN Sodium Chloride 0.9% [Saline Flush] Med 03/15/20 19:13 Active 2.5 ml FLUSH ASDIRECTED PRN Saline Lock Insert [OM.PC] Stat Oth 03/15/20 19:13 Ordered Medication Orders Sodium Chloride (Saline Flush) 10 ml FLUSH ASDIRECTED PRN PRN Reason: Keep Vein Open Last Admin: 03/15/20 19:34 Dose: 10 ml Documented by: FELICIA Sodium Chloride (Saline Flush) 2.5 ml FLUSH ASDIRECTED PRN PRN Reason: Keep Vein Open Last Admin: 03/15/20 19:34 Dose: 2.5 ml Documented by: FELICIA Labs: Laboratory Tests 03/15/20 03/15/20 03/15/20 Range/Units 19:33 19:40 19:40 WBC 9.11 (4.0-11.0) K/uL RBC 4.07 L (4.30-5.90) M/uL Hgb 12.4 (12.0-16.0) g/dL Hct 36.5 (36.0-46.0) % MCV 89.7 (80.0-98.0) fL MCH 30.5 (27.0-32.0) pg MCHC 34.0 (31.0-37.0) g/dL RDW Std Deviation 42.0 (28.0-62.0) fl RDW Coeff of Moira 13 (11.0-15.0) % Plt Count 199 (150-400) K/uL MPV 8.90 (7.40-12.00) fL Neut % (Auto) 72.2 (48.0-80.0) % Lymph % (Auto) 19.6 (16.0-40.0) % [place] % (Auto) 6.0 (0.0-15.0) % Eos % (Auto) 2.1 (0.0-7.0) % Baso % (Auto) 0.1 (0.0-1.5) % Neut # (Auto) 6.6 H (1.4-5.7) K/uL Lymph # (Auto) 1.8 (0.6-2.4) K/uL [place] # (Auto) 0.6 (0.0-0.8) K/uL Eos # (Auto) 0.2 (0.0-0.7) K/uL Baso # (Auto) 0.0 (0.0-0.1) K/uL Nucleated RBC % 0.0 /100WBC Nucleated RBCs # 0 K/uL Sodium 137 (136-145) mmol/L Potassium 3.8 (3.5-5.1) mmol/L Chloride 102 (98-107) mmol/L Carbon Dioxide 26.7 (21.0-32.0) mmol/L BUN 13 (7.0-18.0) mg/dL Creatinine 0.6 (0.6-1.0) mg/dL Est Cr Clr Drug Dosing 100.63 mL/min Estimated GFR (MDRD) > 60.0 ml/min Glucose 94 (74-106) mg/dL Calcium 9.3 (8.5-10.1) mg/dL Total Bilirubin 0.2 (0.2-1.0) mg/dL AST 14 L (15-37) IU/L ALT 18 (14-63) IU/L Alkaline Phosphatase 42 L (46-116) U/L Total Protein 7.0 (6.4-8.2) g/dL Albumin 3.2 L (3.4-5.0) g/dL Globulin 3.8 (2.6-4.0) g/dL Albumin/Globulin Ratio 0.8 L (0.9-1.6) HCG, Quant 13613.0 mIU/mL Urine Color YELLOW Urine Appearance CLEAR Urine pH 6.5 (5.0-8.0) Ur Specific [place] 1.020 (1.001-1.035) Urine Protein NEGATIVE (NEGATIVE) mg/dL Urine Glucose (UA) NEGATIVE (NEGATIVE) mg/dL Urine Ketones NEGATIVE (NEGATIVE) mg/dL Urine Occult Blood NEGATIVE (NEGATIVE) Urine Nitrite NEGATIVE (NEGATIVE) Urine Bilirubin NEGATIVE (NEGATIVE) Urine Urobilinogen 0.2 (<2.0) EU/dL Ur Leukocyte Esterase TRACE H (NEGATIVE) Urine RBC 0-1 (0-2/HPF) Urine WBC 0-2 (0-5/HPF) Ur Epithelial Cells RARE (NONE-FEW) Urine Bacteria RARE (NEGATIVE) Meds: Medications Generic Name Dose Route Start Last Admin Trade Name Freq PRN Reason Stop Dose Admin Sodium Chloride 10 ml 03/15/20 19:13 03/15/20 19:34 Saline Flush FLUSH 10 ml ASDIRECTED PRN Administration Keep Vein Open Sodium Chloride 2.5 ml 03/15/20 19:13 03/15/20 19:34 Saline Flush FLUSH 2.5 ml ASDIRECTED PRN Administration Keep Vein Open Discontinued Medications Generic Name Dose Route Start Last Admin Trade Name Freq PRN Reason Stop Dose Admin Acetaminophen 1,000 mg 03/15/20 19:13 03/15/20 19:34 Tylenol Extra Strength PO 03/15/20 19:14 1,000 mg ONETIME ONE Administration Departure - Departure Time of Disposition: 20:59 Disposition: Home, Self-Care 01 Condition: Good Clinical Impression: Intrauterine Pelvic pain affecting Qualifiers: Trimester: first trimester Qualified Code(s): O26.891 - Other specified related conditions, first trimester; R10.2 - Pelvic and perineal pain - Discharge Information Instructions: Round Ligament Pain Referrals: Cale Vela MD [Primary Care Provider] - Forms: ED Department Discharge Additional Instructions: Your seen and evaluated in the ER today secondary to pelvic pain. Ultrasound is unremarkable as well as your labs in your urine. Please make an appointment to follow-up with your doctor in the next week for reevaluation. You may take acetaminophen as needed for pain. The following information is given to patients seen in the emergency department who are being discharged to home. This information is to outline your options for follow-up care. We provide all patients seen in our emergency department with a follow-up referral. The need for follow-up, as well as the timing and circumstances, are variable depending upon the specifics of your emergency department visit. If you don't have a primary care physician on staff, we will provide you with a referral. We always advise you to contact your personal physician following an emergency department visit to inform them of the circumstance of the visit and for follow-up with them and/or the need for any referrals to a consulting specialist. The emergency department will also refer you to a specialist when appropriate. This referral assures that you have the opportunity for follow-up care with a specialist. All of these measure are taken in an effort to provide you with optimal care, which includes your follow-up. Under all circumstances we always encourage you to contact your private physician who remains a resource for coordinating your care. When calling for follow-up care, please make the office aware that this follow-up is from your recent emergency room visit. If for any reason you are refused follow-up, please contact the [facility] Emergency Department at and asked to speak to the emergency department charge nurse. [facility] - Primary Care [address] [place] [id number] [facility] [address] [place] [id number] Sepsis Event Note (ED) - Evaluation Sepsis Screening Result: No Definite Risk - Focused Exam Vital Signs: Vital Signs Temp Pulse Resp BP Pulse Ox 03/15/20 20:39 80 16 103/65 98 03/15/20 19:35 86 16 92/43 L 97 03/15/20 18:47 98.8 F 101 H 18 133/76 100 - My Orders Last 24 Hours: My Active Orders 03/15/20 19:13 Sodium Chloride 0.9% [Saline Flush] 10 ml FLUSH ASDIRECTED PRN Sodium Chloride 0.9% [Saline Flush] 2.5 ml FLUSH ASDIRECTED PRN Saline Lock Insert [OM.PC] Stat - Assessment/Plan Last 24 Hours: My Active Orders 03/15/20 19:13 Sodium Chloride 0.9% [Saline Flush] 10 ml FLUSH ASDIRECTED PRN Sodium Chloride 0.9% [Saline Flush] 2.5 ml FLUSH ASDIRECTED PRN Saline Lock Insert [OM.PC] Stat
[2020-03-15 20:28] LABS: BLOOD UREA NITROGEN,BUN 13 mg/dL (7.0-18.0); CARBON DIOXIDE,CO2 26.7 mmol/L (21.0-32.0); CHLORIDE,CL 102 mmol/L (98-107); GLUCOSE RANDOM 94 mg/dL (74-106); POTASSIUM,K 3.8 mmol/L (3.5-5.1); SODIUM,NA 137 mmol/L (136-145)
[2020-03-15 20:40] VITALS: PULSE 80
--- NOTE | 2020-03-15 20:53 | US ---
INDICATION: Twelve week female presents with left lower quadrant pain after running on treadmill. TECHNIQUE: 2D gonzalez scale imaging was performed of the pelvis. FINDINGS: Sonographic imaging demonstrates a single living intrauterine gestation. The fetus demonstrates a regular cardiac rate measuring 172 beats per minute. The crown-rump length measurement of 5.9 cm corresponds to a gestational age of 12 weeks 3 days with a sonographic due date of 09/24/2020. There are no gross abnormalities noted within the fetus at this early state of development. The placenta is beginning to develop anteriorly and inferiorly. There is no evidence of a perigestational hemorrhage. The gestational sac has a normal appearance and the amount of fluid within the sac appears appropriate for gestational age. The cervix is closed. The myometrium appears normal. The ovaries are of normal size and demonstrated vascularity on color Doppler analysis. There are no suspicious fluid collections noted in the cul-de-sac. IMPRESSION: Normal-appearing 12 week 3 day gestation. Dictated by Marcos Florez MD @ Mar 15 2020 8:46PM Signed by Dr. Marcos Florez @ Mar 15 2020 8:51PM
[2020-03-15 21:12] VITALS: BP 107/65
== END 2020-03-15 21:11 | disposition home or self-care (01) ==
LOC: MW.ED 18:40
DX: O99.891 Other specified diseases and conditions complicating pregnancy (principal); R10.2 Pelvic and perineal pain; O99.331 Smoking (tobacco) complicating pregnancy, first trimester; F17.210 Nicotine dependence, cigarettes, uncomplicated; Z88.1 Allergy status to other antibiotic agents; Z88.0 Allergy status to penicillin; Z91.018 Allergy to other foods; Z3A.12 12 weeks gestation of pregnancy
CPT/HCPCS: 36415; 76801; 80053; 81001; 84702; 85025; 99284; A9270; 99283

== ENCOUNTER 2020-08-27 01:57 | Inpatient (IN) | payer MEDICAID ==
[2020-08-27] MEDS ORDERED: Water For Irrigation,Sterile 1,000 ML Container IRR PRN (02:16)
[2020-08-27] MEDS ORDERED: Methylergonovine 0.2 MG/1 ML Amp IM PRN (02:16)
[2020-08-27] MEDS ORDERED: Misoprostol 200 MCG Tab PO PRN (02:16)
[2020-08-27] MEDS ORDERED: Nalbuphine 10 MG/1 ML Vial IVPUSH PRN (02:16)
[2020-08-27] MEDS ORDERED: Sodium Chloride 0.9% 10 ML Syringe FLUSH PRN (02:16)
[2020-08-27] MEDS ORDERED: Tranexamic Acid 1,000 MG in Sodium Chloride 0.9% 100 ML IV PRN (02:16)
[2020-08-27] MEDS ORDERED: Butorphanol 1 MG/ML SDV IVPUSH PRN (02:16)
[2020-08-27] MEDS ORDERED: Sodium Chloride 0.9% 10 ML SDV IV PRN (02:16)
[2020-08-27] MEDS ORDERED: Lidocaine 1% 50 ML MDV INJECT PRN (02:16)
[2020-08-27] MEDS ORDERED: Carboprost Tromethamine 250 MCG/1 ML Amp IM PRN (02:16)
[2020-08-27] MEDS ORDERED: Sodium Chloride 0.9% 2.5 ML Syringe FLUSH PRN (02:16)
[2020-08-27] MEDS ORDERED: Oxytocin/0.9 % Sodium Chloride 30 UNIT/500 ML BAG IV SCH (02:30)
[2020-08-27] MEDS ORDERED: Lactated Ringers 1,000 ML IV SCH (02:30)
[2020-08-27] MEDS ORDERED: fentaNYL 100 MCG/2 ML SDV ONE (02:33)
[2020-08-27] MEDS ORDERED: Ropivacaine HCl/PF 200 ML ONE (02:33)
[2020-08-27] MEDS ORDERED: ceFAZolin 1 GM in Premix Bag 1 BAG IV ONE (02:46)
--- NOTE | 2020-08-27 02:56 | PCM.PREANE ---
Preanesthetic Assessment - Anesthesia/Transfusion/Family Hx Anesthesia History: Prior Anesthesia Without Reaction Family History of Anesthesia Reaction: No Transfusion History: No Prior Transfusion(s) - Physical Assessment NPO Status Date: 08/27/20 NPO Status Time: 00:05 Height: 1.55 m Weight: 55.338 kg ASA Class: 2 - Lab Values: Laboratory Last Values WBC 16.53 K/uL (4.0-11.0) H 08/27/20 02:30 RBC 3.83 M/uL (4.30-5.90) L 08/27/20 02:30 Hgb 12.1 g/dL (12.0-16.0) 08/27/20 02:30 Hct 34.4 % (36.0-46.0) L 08/27/20 02:30 MCV 89.8 fL (80.0-98.0) 08/27/20 02:30 MCH 31.6 pg (27.0-32.0) 08/27/20 02:30 MCHC 35.2 g/dL (31.0-37.0) 08/27/20 02:30 RDW Std Deviation 40.0 fl (28.0-62.0) 08/27/20 02:30 RDW Coeff of Moira 12 % (11.0-15.0) 08/27/20 02:30 Plt Count 151 K/uL (150-400) 08/27/20 02:30 MPV 9.90 fL (7.40-12.00) 08/27/20 02:30 Nucleated RBC % 0.0 /100WBC 08/27/20 02:30 Nucleated RBCs # 0 K/uL 08/27/20 02:30 - Allergies Allergies/Adverse Reactions: Allergies Allergy/AdvReac Type Severity Reaction Status Date / Time erythromycin base Allergy Hives Verified 03/15/20 18:46 mushroom Allergy Swelling Verified 03/15/20 18:46 Penicillins Allergy Hives Verified 03/15/20 18:46 - Acknowledgements Anesthesia Type Planned: Epidural Pt an Appropriate Candidate for the Planned Anesthesia: Yes Alternatives and Risks of Anesthesia Discussed w Pt/Guardian: Yes Pt/Guardian Understands and Agrees with Anesthesia Plan: Yes PreAnesthesia Questionnaire HEENT History: Reports: None Cardiovascular History: Reports: None Respiratory History: Reports: None Gastrointestinal History: Reports: None Genitourinary History: Reports: Pyelonephritis Other Genitourinary History: 'WEAK KIDNEYS" HOST/HOSTESS History: Reports: Musculoskeletal History: Reports: None Other Neuro History: LEMERE'S SYNDROME Psychiatric History: Reports: Anxiety Endocrine/Metabolic History: Reports: None Hematologic History: Reports: None Immunologic History: Reports: None Oncologic (Cancer) History: Reports: None Dermatologic History: Reports: Eczema - Infectious Disease History Infectious Disease History: Reports: Chicken Pox, Measles - Past Surgical History HEENT Surgical History: Reports: None GI Surgical History: Reports: None Female Surgical History: Reports: None - HOME MEDS Home Medications: Home Meds Vit 90/Iron Fum/Folic [ Formula] 1 tab PO DAILY 01/11/15 [History] Cider Vinegar [Apple Cider Vinegar] 600 mg PO DAILY 04/02/19 [History] - CURRENT (IN HOUSE) MEDS Current Meds: Current Medications Butorphanol Tartrate (Butorphanol 1 Mg/Ml Sdv) 1 mg IVPUSH Q1H PRN PRN Reason: Pain (severe 7-10) Carboprost Tromethamine (Carboprost Tromethamine 250 Mcg/1 Ml Amp) 250 mcg IM ASDIRECTED PRN PRN Reason: Post Hemorrhage Oxytocin/Sodium Chloride (Oxytocin 30 Unit/500 Ml-Ns) 30 unit in 500 mls @ 500 mls/hr IV TITRATE [place] Tranexamic Acid 1,000 mg/ (Sodium Chloride) 110 mls @ 660 mls/hr IV ONETIME PRN PRN Reason: Bleeding Lactated Ringer's (Ringers, Lactated) 1,000 mls @ 150 mls/hr IV ASDIRECTED [place] Cefazolin Sodium/Dextrose 1 gm (/ Premix) 50 mls @ 100 mls/hr IV ONETIME ONE Stop: 08/27/20 03:15 Lidocaine HCl (Lidocaine 1% 50 Ml Mdv) 50 ml INJECT ONETIME PRN PRN Reason: Laceration repair Methylergonovine Maleate (Methylergonovine 0.2 Mg/1 Ml Amp) 0.2 mg IM ASDIRECTED PRN PRN Reason: Post Hemorrhage Misoprostol (Misoprostol 200 Mcg Tab) 200 mcg PO ONETIME PRN PRN Reason: Post Hemorrhage Nalbuphine HCl (Nalbuphine 10 Mg/1 Ml Vial) 10 mg IVPUSH Q1H PRN PRN Reason: Pain (severe 7-10) Sodium Chloride (Sodium Chloride 0.9% 10 Ml Syringe) 10 ml FLUSH ASDIRECTED PRN PRN Reason: Keep Vein Open Sodium Chloride (Sodium Chloride 0.9% 2.5 Ml Syringe) 2.5 ml FLUSH ASDIRECTED PRN PRN Reason: Keep Vein Open Sodium Chloride (Sodium Chloride 0.9% 10 Ml Sdv) 10 ml IV ASDIRECTED PRN PRN Reason: IV Use Sterile Water (Water For Irrigation,Sterile 1,000 Ml Container) 1,000 ml IRR ASDIRECTED PRN PRN Reason: delivery Discontinued Medications Fentanyl (Fentanyl 100 Mcg/2 Ml Sdv) Confirm Administered Dose 200 mcg .ROUTE .STNext Step Living-MED ONE Stop: 08/27/20 02:34 Ropivacaine (Naropin 0.2%) Confirm Administered Dose 200 mls @ as directed .ROUTE .STK-MED ONE Stop: 08/27/20 02:34
--- NOTE | 2020-08-27 02:59 | PCM.PRNOTE ---
- Free Text/Narrative Note: Anes NOte Patietn requests epidural for L&D. Sitting position. Level L3-L4 midline appraoch. Sterile technique. Chloraprep scrub to lumbar area. Steril fnestrated drape applied. Epidural space easily achieved using BERNARD technique. BERNARD at 2 cm. Cath threaded 5 cm with ease. Cath secured a t skin using sterile clear adhesive dressing. 0240 Test 3 cc 1.5% lido with epi negative. 0243 Load 10 cc 0.2% ropivicaine iwth 1 mcg cc fentanyl in slo divided doses. 0347 Pump started wtoj 190 cc same solution. Rate is 8 cc hr with 6 cc q 20 min prn bolus. Jimmie well. Time with patient [id number] Darian Pino PHYSICIAN RELATIONS SPECIALIST
[2020-08-27] MEDS ORDERED: Oxytocin/0.9 % Sodium Chloride 30 UNIT/500 ML BAG ONE (03:00)
--- NOTE | 2020-08-27 03:49 | PCM.LDHP ---
L&D History of Present Illness - General Date of Service: 08/27/20 Admit Problem/Dx: Patient Status Order with Admit Dx/Problem 08/27/20 02:00 Patient Status [ADT] Routine Admission Diagnosis/Problem Admission Diagnosis/Problem Source of Information: Patient History Limitations: Reports: No Limitations - History of Present Illness Introduction:: 34 year old at 36w0d (EDC 09/24/2020 by 9w6d ultrasound) presents to labor and delivery in active labor. States that her contractions started at 1930 and have been increasing in intensity and frequency. Reports small gush of clear fluid just prior to arrival. Reports good movement. Denies vaginal bleeding. has been complicated by limited care along with marijuana and tobacco use during with a history of methamphetamine use prior to . Has not seen provider in about 2 months and has not had GBS screening performed. Reports allergy to penicillin, however, has had cephalosporins in the past without complications. - Related Data Allergies/Adverse Reactions: Allergies Allergy/AdvReac Type Severity Reaction Status Date / Time erythromycin base Allergy Hives Verified 03/15/20 18:46 mushroom Allergy Swelling Verified 03/15/20 18:46 Penicillins Allergy Hives Verified 03/15/20 18:46 Home Medications: Home Meds Vit 90/Iron Fum/Folic [ Formula] 1 tab PO DAILY 01/11/15 [History] Cider Vinegar [Apple Cider Vinegar] 600 mg PO DAILY 04/02/19 [History] Past Medical History HEENT History: Reports: None Cardiovascular History: Reports: None Respiratory History: Reports: None Gastrointestinal History: Reports: None Genitourinary History: Reports: Pyelonephritis Other Genitourinary History: 'WEAK KIDNEYS" 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: Musculoskeletal History: Reports: None Other Neuro History: LEMERE'S SYNDROME Psychiatric History: Reports: Anxiety Endocrine/Metabolic History: Reports: None Hematologic History: Reports: None Immunologic History: Reports: None Oncologic (Cancer) History: Reports: None Dermatologic History: Reports: Eczema - Infectious Disease History Infectious Disease History: Reports: Chicken Pox, Measles - Past Surgical History HEENT Surgical History: Reports: None GI Surgical History: Reports: None Female Surgical History: Reports: None Social & Family History - Family History HEENT: Reports: None Cardiac: Reports: None Respiratory: Reports: None GI: Reports: None : Reports: None OBGYN: Reports: , Other (See Below) Other OBGYN Family History: PCOS Musculoskeletal: Reports: Arthritis, Back pain, Chronic Neurological: Reports: Migraines, Parkinson's Psychiatric: Reports: Anxiety Endocrine/Metabolic: Reports: None Hematologic: Reports: None Immunologic: Reports: None Dermatologic: Reports: None Oncologic: Reports: Colon - Caffeine Use Caffeine Use: Reports: Coffee H&P Review of Systems - Review of Systems: Review Of Systems: See Below General: Reports: No Symptoms HEENT: Reports: No Symptoms Pulmonary: Reports: No Symptoms Cardiovascular: Reports: No Symptoms Gastrointestinal: Reports: Abdominal Pain Genitourinary: Reports: No Symptoms Musculoskeletal: Reports: No Symptoms, Back Pain Skin: Reports: No Symptoms Psychiatric: Reports: No Symptoms Neurological: Reports: No Symptoms Hematologic/Lymphatic: Reports: No Symptoms Immunologic: Reports: No Symptoms L&D Exam - Exam Exam: See Below - Vital Signs Weight: 122 lb - OB Specific Contraction Frequency (min): 5 Contraction Intensity: Moderate Movement: Active Heart Tones: Present Heart Tones per Min: 130 Heart Rate (FHR) Variability: Moderate (6-25 bmp) Presentation: Vertex Estimated Weight: 2800 grams by Bassam's - Lockett Score Lockett Score Cervix Position: Midposition Lockett Score Consistency: Soft Lockett Score Effacement: >80% Lockett Score Dilation: > 5 cm Lockett Score 's Station: -1 ,0 Lockett Score Total: 11 - Exam General: Alert Lungs: Normal Respiratory Effort Cardiovascular: Regular Rate GI/Abdominal Exam: Soft, Non-Tender Genitourinary: Normal external exam Back Exam: Normal Inspection, Full Range of Motion Extremities: Normal Inspection, Normal Range of Motion, Non-Tender, No Pedal Edema Skin: Warm, Dry, Intact Psychiatric: Normal Mood - Patient Data Lab Results Last 24 hrs: Laboratory Results - last 24 hr 08/27/20 08/27/20 08/27/20 Range/Units 02:26 02:30 02:35 WBC 16.53 H (4.0-11.0) K/uL RBC 3.83 L (4.30-5.90) M/uL Hgb 12.1 (12.0-16.0) g/dL Hct 34.4 L (36.0-46.0) % MCV 89.8 (80.0-98.0) fL MCH 31.6 (27.0-32.0) pg MCHC 35.2 (31.0-37.0) g/dL RDW Std Deviation 40.0 (28.0-62.0) fl RDW Coeff of Moira 12 (11.0-15.0) % Plt Count 151 (150-400) K/uL MPV 9.90 (7.40-12.00) fL Nucleated RBC % 0.0 /100WBC Nucleated RBCs # 0 K/uL SARS-CoV-2 RNA (MIRIAN) NEGATIVE (NEGATIVE) Blood Type A POSITIVE Antibody Screen NEGATIVE Result Diagrams: 08/27/20 02:30 Problem List Initiated/Reviewed/Updated: Yes Orders Last 24hrs: Active Orders 24 hr Category Date Time Status Patient Status [ADT] Routine ADT 08/27/20 02:00 Active Heart Tones [RC] CONTINUOUS Care 08/27/20 02:17 Active Non Stress Test [RC] PER UNIT ROUTINE Care 08/27/20 02:17 Active May Shower [RC] ASDIRECTED Care 08/27/20 02:17 Active Notify Provider [RC] PRN Care 08/27/20 02:17 Active Up ad Roslyn [RC] ASDIRECTED Care 08/27/20 02:17 Active Vaginal Exam [RC] PRN Care 08/27/20 02:17 Active Vital Signs [RC] PER UNIT ROUTINE Care 08/27/20 02:17 Active RPR (SYPHILIS SERO) W/ RFLX [REF] Routine Lab 08/27/20 02:30 Received Butorphanol [Stadol] Med 08/27/20 02:16 Active 1 mg IVPUSH Q1H PRN Carboprost Tromethamine [Hemabate DS] Med 08/27/20 02:16 Active 250 mcg IM ASDIRECTED PRN Lactated Ringers [Ringers, Lactated] 1,000 ml Med 08/27/20 02:30 Active IV ASDIRECTED Lidocaine 1% [Xylocaine 1%] Med 08/27/20 02:16 Active 50 ml INJECT ONETIME PRN Methylergonovine [Methergine] Med 08/27/20 02:16 Active 0.2 mg IM ASDIRECTED PRN Nalbuphine [Nubain] Med 08/27/20 02:16 Active 10 mg IVPUSH Q1H PRN Oxytocin/0.9 % Sodium Chloride [Oxytocin 30 Unit/500 ML Med 08/27/20 02:30 Active -NS] 30 unit in 500 ml IV TITRATE Sodium Chloride 0.9% [Normal Saline] Med 08/27/20 02:16 Active 10 ml IV ASDIRECTED PRN Sodium Chloride 0.9% [Saline Flush] Med 08/27/20 02:16 Active 10 ml FLUSH ASDIRECTED PRN Sodium Chloride 0.9% [Saline Flush] Med 08/27/20 02:16 Active 2.5 ml FLUSH ASDIRECTED PRN Tranexamic Acid [Cyklokapron] 1,000 mg Med 08/27/20 02:16 Active Sodium Chloride 0.9% [Normal Saline] 100 ml IV ONETIME Water For Irrigation,Sterile [Sterile Water for Med 08/27/20 02:16 Active Irrigation] 1,000 ml IRR ASDIRECTED PRN miSOPROStoL [Cytotec] Med 08/27/20 02:16 Active 200 mcg PO ONETIME PRN Scalp Electrode [WOMSER] Per Unit Routine Oth 08/27/20 02:17 Ordered Peripheral IV Insertion Adult [OM.PC] Routine Oth 08/27/20 02:17 Ordered Resuscitation Status Routine Resus Stat 08/27/20 02:16 Ordered Medication Orders Butorphanol Tartrate (Butorphanol 1 Mg/Ml Sdv) 1 mg IVPUSH Q1H PRN PRN Reason: Pain (severe 7-10) Carboprost Tromethamine (Carboprost Tromethamine 250 Mcg/1 Ml Amp) 250 mcg IM ASDIRECTED PRN PRN Reason: Post Hemorrhage Oxytocin/Sodium Chloride (Oxytocin 30 Unit/500 Ml-Ns) 30 unit in 500 mls @ 500 mls/hr IV TITRATE [place] Tranexamic Acid 1,000 mg/ (Sodium Chloride) 110 mls @ 660 mls/hr IV ONETIME PRN PRN Reason: Bleeding Lactated Ringer's (Ringers, Lactated) 1,000 mls @ 150 mls/hr IV ASDIRECTED [place] Lidocaine HCl (Lidocaine 1% 50 Ml Mdv) 50 ml INJECT ONETIME PRN PRN Reason: Laceration repair Methylergonovine Maleate (Methylergonovine 0.2 Mg/1 Ml Amp) 0.2 mg IM ASDIRECTED PRN PRN Reason: Post Hemorrhage Misoprostol (Misoprostol 200 Mcg Tab) 200 mcg PO ONETIME PRN PRN Reason: Post Hemorrhage Nalbuphine HCl (Nalbuphine 10 Mg/1 Ml Vial) 10 mg IVPUSH Q1H PRN PRN Reason: Pain (severe 7-10) Sodium Chloride (Sodium Chloride 0.9% 10 Ml Syringe) 10 ml FLUSH ASDIRECTED PRN PRN Reason: Keep Vein Open Sodium Chloride (Sodium Chloride 0.9% 2.5 Ml Syringe) 2.5 ml FLUSH ASDIRECTED PRN PRN Reason: Keep Vein Open Sodium Chloride (Sodium Chloride 0.9% 10 Ml Sdv) 10 ml IV ASDIRECTED PRN PRN Reason: IV Use Sterile Water (Water For Irrigation,Sterile 1,000 Ml Container) 1,000 ml IRR ASDIRECTED PRN PRN Reason: delivery Assessment/Plan Comment:: 34 year old at 36w0d (EDC 09/24/2020 by 9w6d ultrasound) in spontaneous labor with rupture of membranes * Admit to labor and delivery * GBS collected, will treat prophylactically with Ancef 2g IV followed by Ancef 1g q8hrs * Rh positive, rubella immune * Epidural PRN pain management * UDS ordered due to history of illicit drug use * COVID-19 screening pending * Diet NPO Dispo: stable. Proceed with expectant management of labor.
[2020-08-27] MEDS ORDERED: Bisacodyl 10 MG Supp RECTAL PRN (05:28)
[2020-08-27] MEDS ORDERED: Docusate Sodium 100 MG Cap PO PRN (05:28)
[2020-08-27] MEDS ORDERED: Witch Hazel Medicated Pads 40/Jar TOP PRN (05:28)
[2020-08-27] MEDS ORDERED: oxyCODONE 5 MG Tab PO PRN (05:28)
[2020-08-27] MEDS ORDERED: Benzocaine/Menthol 20%-0.5% Spray 78 GM Cannister TOP PRN (05:28)
[2020-08-27] MEDS ORDERED: Acetaminophen 500 MG Tab PO PRN ×2 (05:28)
[2020-08-27] MEDS ORDERED: Lanolin 100% Cream 7 GM Tube TOP PRN (05:28)
[2020-08-27] MEDS ORDERED: Ibuprofen 800 MG Tab PO PRN (05:28)
[2020-08-27] MEDS ORDERED: Ibuprofen 400 MG Tab PO PRN (05:28)
--- NOTE | 2020-08-27 05:40 | PCM.DEL ---
L & D Note - General Info Date of Service: 08/27/20 Mother's Due Date: 09/24/20 - Delivery Note Labor: Spontaneous Delivery Outcome: Livebirth Infant Delivery Method: Spontaneous Vaginal Delivery-Single Presentation: Right Occiput Anterior (LEOPOLDO) Nuchal Cord: None Anesthesia Type: Epidural Amniotic Fluid Description: Bloody Episiotomy Type: None Laceration: Periurethral Suture type: Chromic Suture size: 3-0 Placenta: Intact, Spontaneous Cord: 3 Vessels Estimated Blood Loss: 250 Resuscitation Needed: No [place]: Bulb Syringe, Warmer Used Score 1 min: 7 Score 5 min: 8 Delivery Comments (Free Text/Narrative):: Dictation #[id number] - General Info Date of Service: 08/27/20 Admission Dx/Problem (Free Text): Patient Status Order with Admit Dx/Problem 08/27/20 02:00 Patient Status [ADT] Routine Admission Diagnosis/Problem Admission Diagnosis/Problem - Patient Data Weight - Most Recent: 122 lb Lab Results Last 24 Hours: Laboratory Results - last 24 hr 08/27/20 08/27/20 08/27/20 Range/Units 02:26 02:30 02:35 WBC 16.53 H (4.0-11.0) K/uL RBC 3.83 L (4.30-5.90) M/uL Hgb 12.1 (12.0-16.0) g/dL Hct 34.4 L (36.0-46.0) % MCV 89.8 (80.0-98.0) fL MCH 31.6 (27.0-32.0) pg MCHC 35.2 (31.0-37.0) g/dL RDW Std Deviation 40.0 (28.0-62.0) fl RDW Coeff of Moira 12 (11.0-15.0) % Plt Count 151 (150-400) K/uL MPV 9.90 (7.40-12.00) fL Nucleated RBC % 0.0 /100WBC Nucleated RBCs # 0 K/uL Urine Opiates Screen (NEGATIVE) Ur Oxycodone Screen (NEGATIVE) Urine Methadone Screen (NEGATIVE) Ur Barbiturates Screen (NEGATIVE) Ur Phencyclidine Scrn (NEGATIVE) Ur Amphetamine Screen (NEGATIVE) U Methamphetamines Scrn (NEGATIVE) U Benzodiazepines Scrn (NEGATIVE) U Cocaine Metab Screen (NEGATIVE) U Marijuana (THC) Screen (NEGATIVE) SARS-CoV-2 RNA (MIRIAN) NEGATIVE (NEGATIVE) Blood Type A POSITIVE Antibody Screen NEGATIVE 08/27/20 Range/Units 03:35 WBC (4.0-11.0) K/uL RBC (4.30-5.90) M/uL Hgb (12.0-16.0) g/dL Hct (36.0-46.0) % MCV (80.0-98.0) fL MCH (27.0-32.0) pg MCHC (31.0-37.0) g/dL RDW Std Deviation (28.0-62.0) fl RDW Coeff of Moira (11.0-15.0) % Plt Count (150-400) K/uL MPV (7.40-12.00) fL Nucleated RBC % /100WBC Nucleated RBCs # K/uL Urine Opiates Screen NEGATIVE (NEGATIVE) Ur Oxycodone Screen NEGATIVE (NEGATIVE) Urine Methadone Screen NEGATIVE (NEGATIVE) Ur Barbiturates Screen NEGATIVE (NEGATIVE) Ur Phencyclidine Scrn NEGATIVE (NEGATIVE) Ur Amphetamine Screen POSITIVE (NEGATIVE) U Methamphetamines Scrn POSITIVE (NEGATIVE) U Benzodiazepines Scrn NEGATIVE (NEGATIVE) U Cocaine Metab Screen NEGATIVE (NEGATIVE) U Marijuana (THC) Screen POSITIVE (NEGATIVE) SARS-CoV-2 RNA (MIRIAN) (NEGATIVE) Blood Type Antibody Screen Med Orders - Current: Current Medications Butorphanol Tartrate (Butorphanol 1 Mg/Ml Sdv) 1 mg IVPUSH Q1H PRN PRN Reason: Pain (severe 7-10) Carboprost Tromethamine (Carboprost Tromethamine 250 Mcg/1 Ml Amp) 250 mcg IM ASDIRECTED PRN PRN Reason: Post Hemorrhage Oxytocin/Sodium Chloride (Oxytocin 30 Unit/500 Ml-Ns) 30 unit in 500 mls @ 500 mls/hr IV TITRATE [place] Tranexamic Acid 1,000 mg/ (Sodium Chloride) 110 mls @ 660 mls/hr IV ONETIME PRN PRN Reason: Bleeding Lactated Ringer's (Ringers, Lactated) 1,000 mls @ 150 mls/hr IV ASDIRECTED [place] Lidocaine HCl (Lidocaine 1% 50 Ml Mdv) 50 ml INJECT ONETIME PRN PRN Reason: Laceration repair Methylergonovine Maleate (Methylergonovine 0.2 Mg/1 Ml Amp) 0.2 mg IM ASDIRECTED PRN PRN Reason: Post Hemorrhage Misoprostol (Misoprostol 200 Mcg Tab) 200 mcg PO ONETIME PRN PRN Reason: Post Hemorrhage Nalbuphine HCl (Nalbuphine 10 Mg/1 Ml Vial) 10 mg IVPUSH Q1H PRN PRN Reason: Pain (severe 7-10) Sodium Chloride (Sodium Chloride 0.9% 10 Ml Syringe) 10 ml FLUSH ASDIRECTED PRN PRN Reason: Keep Vein Open Sodium Chloride (Sodium Chloride 0.9% 2.5 Ml Syringe) 2.5 ml FLUSH ASDIRECTED PRN PRN Reason: Keep Vein Open Sodium Chloride (Sodium Chloride 0.9% 10 Ml Sdv) 10 ml IV ASDIRECTED PRN PRN Reason: IV Use Sterile Water (Water For Irrigation,Sterile 1,000 Ml Container) 1,000 ml IRR ASDIRECTED PRN PRN Reason: delivery Discontinued Medications Fentanyl (Fentanyl 100 Mcg/2 Ml Sdv) Confirm Administered Dose 200 mcg .ROUTE .STK-MED ONE Stop: 08/27/20 02:34 Ropivacaine (Naropin 0.2%) Confirm Administered Dose 200 mls @ as directed .ROUTE .STK-MED ONE Stop: 08/27/20 02:34 Cefazolin Sodium/Dextrose 1 gm (/ Premix) 50 mls @ 100 mls/hr IV ONETIME ONE Stop: 08/27/20 03:15 Last Admin: 08/27/20 03:10 Dose: 100 mls/hr Documented by: Oxytocin/Sodium Chloride (Oxytocin 30 Unit/500 Ml-Ns) Confirm Administered Dose 30 unit in 500 mls @ as directed .ROUTE .STK-MED ONE Stop: 08/27/20 03:01 - Problem List Review Problem List Initiated/Reviewed/Updated: Yes - My Orders Last 24 Hours: My Active Orders 08/27/20 02:00 Patient Status [ADT] Routine 08/27/20 02:16 Butorphanol [Stadol] 1 mg IVPUSH Q1H PRN Carboprost Tromethamine [Hemabate DS] 250 mcg IM ASDIRECTED PRN Lidocaine 1% [Xylocaine 1%] 50 ml INJECT ONETIME PRN Methylergonovine [Methergine] 0.2 mg IM ASDIRECTED PRN Nalbuphine [Nubain] 10 mg IVPUSH Q1H PRN Sodium Chloride 0.9% [Normal Saline] 10 ml IV ASDIRECTED PRN Sodium Chloride 0.9% [Saline Flush] 10 ml FLUSH ASDIRECTED PRN Sodium Chloride 0.9% [Saline Flush] 2.5 ml FLUSH ASDIRECTED PRN Tranexamic Acid [Cyklokapron] 1,000 mg Sodium Chloride 0.9% [Normal Saline] 100 ml IV ONETIME Water For Irrigation,Sterile [Sterile Water for Irrigation] 1,000 ml IRR ASDIRECTED PRN miSOPROStoL [Cytotec] 200 mcg PO ONETIME PRN Resuscitation Status Routine 08/27/20 02:17 Heart Tones [RC] CONTINUOUS Non Stress Test [RC] PER UNIT ROUTINE May Shower [RC] ASDIRECTED Notify Provider [RC] PRN Up ad Roslyn [RC] ASDIRECTED Vaginal Exam [RC] PRN Vital Signs [RC] PER UNIT ROUTINE Scalp Electrode [WOMSER] Per Unit Routine Peripheral IV Insertion Adult [OM.PC] Routine 08/27/20 02:30 RPR (SYPHILIS SERO) W/ RFLX [REF] Routine Lactated Ringers [Ringers, Lactated] 1,000 ml IV ASDIRECTED Oxytocin/0.9 % Sodium Chloride [Oxytocin 30 Unit/500 ML-NS] 30 unit in 500 ml IV TITRATE 08/27/20 05:28 Patient Status [ADT] Routine May Shower [RC] ASDIRECTED Up ad Roslyn [RC] ASDIRECTED Vital Signs [RC] PER UNIT ROUTINE Acetaminophen [Tylenol Extra Strength] 1,000 mg PO Q4H PRN Acetaminophen [Tylenol Extra Strength] 500 mg PO Q4H PRN Benzocaine/Menthol [Dermoplast Pain Relief 20%-0.5% [place]] 78 gm TOP ASDIRECTED PRN Docusate Sodium [Colace] 100 mg PO Q12H PRN Ibuprofen [Motrin] 400 mg PO Q4H PRN Ibuprofen [Motrin] 800 mg PO Q6H PRN Lanolin [Lansinoh HPA] See Dose Instructions TOP ASDIRECTED PRN bisacodyL [Dulcolax] 10 mg RECTAL ONETIME PRN oxyCODONE 5 mg PO Q2H PRN witch Alyssa [Tucks] 1 pad TOP ASDIRECTED PRN Assess Lochia [WOMSER] Per Unit Routine Assess Uterine Involution [WOMSER] Per Unit Routine Peripheral IV Discontinue [OM.PC] Routine 08/28/20 05:11 HEMOGLOBIN/HEMATOCRIT,HH [HEME] Timed - Assessment Assessment:: 34 year old G2 now P2 s/p spontaneous vaginal delivery - Plan Plan:: Routine cares * Rh positive, rubella immune * GBS unknown, received 1 dose of Ancef * PO pain medication ordered PRN * Regular diet as tolerated * Encourage ambulation and fluid intake when able * Plans to bottle feed History of illicit drug use * Tobacco and marijuana use during , history of methamphetamines * Urine drug screen collected and results pending Suspected placental abruption * Placenta examined and appears to be intact * Sent to pathology. Dispo: stable. Admit to floor and anticipate routine course.
--- NOTE | 2020-08-27 06:26 | OR ---
SURGEON: SARITA CARTAGENA MD DATE OF PROCEDURE: 08/27/2020 PREOPERATIVE DIAGNOSES: 1. intrauterine gestation at 36 weeks 0 day's gestation. 2. Limited care. 3. History of illicit drug use. 4. Tobacco use in . 5. Group B Streptococcus unknown POSTOPERATIVE DIAGNOSES: 1. intrauterine gestation at 36 weeks 0 day's gestation. 2. Limited care. 3. History of illicit drug use. 4. Tobacco use in . 5. Suspected placental abruption. 6. Group B Streptococcus unknown. PROCEDURE PERFORMED: Spontaneous vaginal delivery, repair of periurethral laceration. PRIMARY SURGEON: Sarita Cartagena MD. ANESTHESIOLOGISTS: Darian Pino CRNA. ANESTHESIA: Epidural. FINDINGS: Viable female , cephalic presentation, scores 7 and 8, weight one 5 pounds 4 ounces, periurethral laceration. INDICATION FOR PROCEDURE: The patient is a 34-year-old 2, para 1 female, who presented to Labor and Delivery on the morning of 08/27/2020 at approximately 36 weeks 0 day's gestation. She is a patient of Dr. Vela at the [facility], however, has had limited care throughout the with her last visit in May 2020. The has been complicated by marijuana and tobacco use in . The patient has a history of illicit drug use including methamphetamines. The patient presented in spontaneous active labor and spontaneous rupture of membranes just prior to presenting to the hospital. Upon arrival, patient was admitted to the Labor and Delivery room and was noted to be 6 cm dilated. Quickly thereafter. She received an epidural. The group B strep was unknown, and sample was collected due to status. She was started on IV Ancef 2 g for GBS prophylaxis. She does have allergy to penicillins, however, she has tolerated cephalosporins in the past. Labor then progressed spontaneously, and at approximately 0500 this morning, I was notified the patient was completely dilated and 2+ station with the desire to push. DESCRIPTION OF PROCEDURE: The patient pushed with contractions for approximately 5 minutes with good descent. head delivered in the occiput anterior position. Restituted ROT. Anterior shoulder delivered easily. No nuchal cord was noted. Posterior shoulder and remainder of the body were then delivered. The baby was then placed on maternal abdomen and evaluated by awaiting nursing staff. The baby was pink, crying vigorously, and moving all extremities immediately after the delivery. The umbilical cord was clamped and cut after 60 seconds and no longer pulsating. The segment of the umbilical cord was then obtained to send for drug screen for a . Venous and cord blood gases were then obtained. Spontaneous delivery of the placenta shortly followed thereafter with large blood clots following the 's delivery, and with delivery of the placenta suspected placental abruption noted. Inspection of the cervix, vaginal wall, and the perineum was then performed, and a small periurethral laceration was noted. Due to oozing at this area, it was reapproximated with a [id number] stitch with 3-0 chromic. The patient tolerated the procedure well. Fundal massage was performed, and the uterus fundus appeared firm and below the umbilicus. EBL was 250 mL. Sponge, lap, and needle count were correct. The patient was taken to recovery room from the room in stable condition. SHAE / GIANNI /[id number] MTDTimi
--- NOTE | 2020-08-27 07:02 | PCM48HPAN ---
Post Anesthesia Note - EVALUATION WITHIN 48HRS OF ANESTHETIC Vital Signs in Normal Range: Yes Patient Participated in Evaluation: Yes Respiratory Function Stable: Yes Airway Patent: Yes Cardiovascular Function Stable: Yes Hydration Status Stable: Yes Pain Control Satisfactory: Yes Nausea and Vomiting Control Satisfactory: Yes Mental Status Recovered: Yes
--- NOTE | 2020-08-27 09:25 | PCM.NBADM ---
Nursery Information Weight: 2.38 kg Length: 46.99 cm Head Circumference: 34.29 cm Assessment and Plan Orders (Last 24 Hours): Active Orders 24 hr Category Date Time Status Patient Status [ADT] Routine ADT 08/27/20 02:00 Active Patient Status [ADT] Routine ADT 08/27/20 05:28 Active Heart Tones [RC] CONTINUOUS Care 08/27/20 02:17 Active Non Stress Test [RC] PER UNIT ROUTINE Care 08/27/20 02:17 Active May Shower [RC] ASDIRECTED Care 08/27/20 02:17 Active May Shower [RC] ASDIRECTED Care 08/27/20 05:28 Active Notify Provider [RC] PRN Care 08/27/20 02:17 Active Up ad Roslyn [RC] ASDIRECTED Care 08/27/20 02:17 Active Up ad Roslyn [RC] ASDIRECTED Care 08/27/20 05:28 Active Vaginal Exam [RC] PRN Care 08/27/20 02:17 Active Vital Signs [RC] PER UNIT ROUTINE Care 08/27/20 02:17 Active Vital Signs [RC] PER UNIT ROUTINE Care 08/27/20 05:28 Active Regular Diet [DIET] Diet 08/27/20 Breakfast Active HEMOGLOBIN/HEMATOCRIT,HH [HEME] Timed Lab 08/28/20 05:11 Ordered RPR (SYPHILIS SERO) W/ RFLX [REF] Routine Lab 08/27/20 02:30 Received Acetaminophen [Tylenol Extra Strength] Med 08/27/20 05:28 Active 1,000 mg PO Q4H PRN Acetaminophen [Tylenol Extra Strength] Med 08/27/20 05:28 Active 500 mg PO Q4H PRN Benzocaine/Menthol [Dermoplast Pain Relief 20%-0.5% Med 08/27/20 05:28 Active [place]] 78 gm TOP ASDIRECTED PRN Butorphanol [Stadol] Med 08/27/20 02:16 Active 1 mg IVPUSH Q1H PRN Carboprost Tromethamine [Hemabate DS] Med 08/27/20 02:16 Active 250 mcg IM ASDIRECTED PRN Docusate Sodium [Colace] Med 08/27/20 05:28 Active 100 mg PO Q12H PRN Ibuprofen [Motrin] Med 08/27/20 05:28 Active 400 mg PO Q4H PRN Ibuprofen [Motrin] Med 08/27/20 05:28 Active 800 mg PO Q6H PRN Lactated Ringers [Ringers, Lactated] 1,000 ml Med 08/27/20 02:30 Active IV ASDIRECTED Lanolin [Lansinoh HPA] Med 08/27/20 05:28 Active See Dose Instructions TOP ASDIRECTED PRN Lidocaine 1% [Xylocaine 1%] Med 08/27/20 02:16 Active 50 ml INJECT ONETIME PRN Methylergonovine [Methergine] Med 08/27/20 02:16 Active 0.2 mg IM ASDIRECTED PRN Nalbuphine [Nubain] Med 08/27/20 02:16 Active 10 mg IVPUSH Q1H PRN Oxytocin/0.9 % Sodium Chloride [Oxytocin 30 Unit/500 ML Med 08/27/20 02:30 Active -NS] 30 unit in 500 ml IV TITRATE Sodium Chloride 0.9% [Normal Saline] Med 08/27/20 02:16 Active 10 ml IV ASDIRECTED PRN Sodium Chloride 0.9% [Saline Flush] Med 08/27/20 02:16 Active 10 ml FLUSH ASDIRECTED PRN Sodium Chloride 0.9% [Saline Flush] Med 08/27/20 02:16 Active 2.5 ml FLUSH ASDIRECTED PRN Tranexamic Acid [Cyklokapron] 1,000 mg Med 08/27/20 02:16 Active Sodium Chloride 0.9% [Normal Saline] 100 ml IV ONETIME Water For Irrigation,Sterile [Sterile Water for Med 08/27/20 02:16 Active Irrigation] 1,000 ml IRR ASDIRECTED PRN bisacodyL [Dulcolax] Med 08/27/20 05:28 Active 10 mg RECTAL ONETIME PRN miSOPROStoL [Cytotec] Med 08/27/20 02:16 Active 200 mcg PO ONETIME PRN oxyCODONE Med 08/27/20 05:28 Active 5 mg PO Q2H PRN witch Alyssa [Tucks] Med 08/27/20 05:28 Active 1 pad TOP ASDIRECTED PRN Assess Lochia [WOMSER] Per Unit Routine Oth 08/27/20 05:28 Ordered Assess Uterine Involution [WOMSER] Per Unit Routine Oth 08/27/20 05:28 Ordered Scalp Electrode [WOMSER] Per Unit Routine Ot 08/27/20 02:17 Ordered Peripheral IV Discontinue [OM.PC] Routine Ot 08/27/20 05:28 Ordered Peripheral IV Insertion Adult [OM.PC] Routine Ot 08/27/20 02:17 Ordered Resuscitation Status Routine Resus Stat 08/27/20 02:16 Ordered Medication Orders Acetaminophen (Acetaminophen 500 Mg Tab) 500 mg PO Q4H PRN PRN Reason: Pain (mild 1-3) Acetaminophen (Acetaminophen 500 Mg Tab) 1,000 mg PO Q4H PRN PRN Reason: Pain (mild 1-3) Benzocaine/Menthol (Benzocaine/Menthol 20%-0.5% [place] 78 Gm Cannister) 78 gm TOP ASDIRECTED PRN PRN Reason: Perineal Comfort Measure Bisacodyl (Bisacodyl 10 Mg Supp) 10 mg RECTAL ONETIME PRN PRN Reason: Constipation Butorphanol Tartrate (Butorphanol 1 Mg/Ml Sdv) 1 mg IVPUSH Q1H PRN PRN Reason: Pain (severe 7-10) Carboprost Tromethamine (Carboprost Tromethamine 250 Mcg/1 Ml Amp) 250 mcg IM ASDIRECTED PRN PRN Reason: Post Hemorrhage Docusate Sodium (Docusate Sodium 100 Mg Cap) 100 mg PO Q12H PRN PRN Reason: Constipation Emollient Ointment (Lanolin 100% Cream 7 Gm Tube) 0 gm TOP ASDIRECTED PRN PRN Reason: Sore Nipples Oxytocin/Sodium Chloride (Oxytocin 30 Unit/500 Ml-Ns) 30 unit in 500 mls @ 500 mls/hr IV TITRATE [place] Tranexamic Acid 1,000 mg/ (Sodium Chloride) 110 mls @ 660 mls/hr IV ONETIME PRN PRN Reason: Bleeding Lactated Ringer's (Ringers, Lactated) 1,000 mls @ 150 mls/hr IV ASDIRECTED [facility] Ibuprofen (Ibuprofen 400 Mg Tab) 400 mg PO Q4H PRN PRN Reason: Pain (mild 1-3) Ibuprofen (Ibuprofen 800 Mg Tab) 800 mg PO Q6H PRN PRN Reason: Pain (mild 1-3) Lidocaine HCl (Lidocaine 1% 50 Ml Mdv) 50 ml INJECT ONETIME PRN PRN Reason: Laceration repair Methylergonovine Maleate (Methylergonovine 0.2 Mg/1 Ml Amp) 0.2 mg IM ASDIRECTED PRN PRN Reason: Post Hemorrhage Misoprostol (Misoprostol 200 Mcg Tab) 200 mcg PO ONETIME PRN PRN Reason: Post Hemorrhage Nalbuphine HCl (Nalbuphine 10 Mg/1 Ml Vial) 10 mg IVPUSH Q1H PRN PRN Reason: Pain (severe 7-10) Oxycodone HCl (Oxycodone 5 Mg Tab) 5 mg PO Q2H PRN PRN Reason: Pain (severe 7-10) Sodium Chloride (Sodium Chloride 0.9% 10 Ml Syringe) 10 ml FLUSH ASDIRECTED PRN PRN Reason: Keep Vein Open Sodium Chloride (Sodium Chloride 0.9% 2.5 Ml Syringe) 2.5 ml FLUSH ASDIRECTED PRN PRN Reason: Keep Vein Open Sodium Chloride (Sodium Chloride 0.9% 10 Ml Sdv) 10 ml IV ASDIRECTED PRN PRN Reason: IV Use Sterile Water (Water For Irrigation,Sterile 1,000 Ml Container) 1,000 ml IRR ASDIRECTED PRN PRN Reason: delivery Witch Alyssa (Witch Alyssa Medicated Pads 40/Jar) 1 pad TOP ASDIRECTED PRN PRN Reason: comfort care Plan: Routine cares * Rh positive, rubella immune * GBS unknown, received 1 dose of Ancef * PO pain medication ordered PRN * Regular diet as tolerated * Encourage ambulation and fluid intake when able * Plans to bottle feed History of illicit drug use * Tobacco and marijuana use during , history of methamphetamines * Urine drug screen collected and results pending Suspected placental abruption * Placenta examined and appears to be intact * Sent to pathology. Dispo: stable. Admit to floor and anticipate routine course. History - Admission Detail Date of Service: 08/27/20 Admission Detail: Mother's Blood Type and RH Blood Type A POSITIVE 08/27/20 02:35 Mom is a 34 yr old woman with longstanding history of drug addiction who presented in labor @ 36 weeks gestation. She had limited care , she is a female with with negative RPR in March of this year, the rest of her serology is pending. She is Blood type A +, group B strep unknown. Mom received 1 dose of ancef < 4 hours prior to delivery. Moms urine toxicology was positive for THC, Methamphetamine and Amphetamine. Mom has been incarcerated and was released in March of 2020. on presentation mom had altered mental status, and vaginal bleeding. Anesthesia ; epidural Presentation : vertex Delivery @05.10 am 08/27/20 Delivery complicated by placental abruption. Resuscitation : baby required PPV, CPAP and deep suction for copious thick blood sectreetions secondary to maternal abruption. BW : 2380g Plan : transitional care in the nursery, moms sister is interested in adoption. Paper work has not been filled, maternal grandmother has expressed a desire to be the foster mother, awaiting feed back form Social service/ CPS Infant Delivery Method: Spontaneous Vaginal Delivery-Single - Maternal History : 2 Term: 2 Mother's Blood Type: A Mother's Rh: Positive Events: High Risk (limited care,maternal drug addiction, recent incarcerartion)
--- NOTE | 2020-08-28 11:39 | PCM.PNPP ---
- General Info Date of Service: 08/28/20 Functional Status: Reports: Pain Controlled, Tolerating Diet, Ambulating, Urinating - Review of Systems General: Denies: Fever, Weakness Pulmonary: Denies: Shortness of Breath Cardiovascular: Denies: Chest Pain, Palpitations, Lightheadedness Gastrointestinal: Reports: No Symptoms Genitourinary: Reports: No Symptoms Musculoskeletal: Reports: No Symptoms Skin: Reports: No Symptoms Neurological: Reports: No Symptoms Psychiatric: Reports: No Symptoms - General Info Date of Service: 08/28/20 - Patient Data Vital Signs - Most Recent: Last Vital Signs Temp 36.6 C 08/28/20 06:15 Pulse 85 08/27/20 16:00 Resp 14 08/28/20 06:15 BP 106/66 08/28/20 06:15 Pulse Ox 97 08/28/20 06:15 Weight - Most Recent: 55.338 kg Lab Results - Last 24 Hours: Laboratory Results - last 24 hr 08/27/20 08/27/20 08/28/20 Range/Units 02:30 02:30 06:30 Hgb 11.5 L (12.0-16.0) g/dL Hct 33.7 L (36.0-46.0) % Hep Bs Antigen Index < 0.1 (<1.0) INDEX Hep C Ab Index (ADE) < 0.02 (<0.8) INDEX HIV 1&2 Ag/Ab, 4th Gen < 0.1 (<1.0) INDEX Med Orders - Current: Current Medications Acetaminophen (Acetaminophen 500 Mg Tab) 500 mg PO Q4H PRN PRN Reason: Pain (mild 1-3) Acetaminophen (Acetaminophen 500 Mg Tab) 1,000 mg PO Q4H PRN PRN Reason: Pain (mild 1-3) Benzocaine/Menthol (Benzocaine/Menthol 20%-0.5% [place] 78 Gm Cannister) 78 gm TOP ASDIRECTED PRN PRN Reason: Perineal Comfort Measure Bisacodyl (Bisacodyl 10 Mg Supp) 10 mg RECTAL ONETIME PRN PRN Reason: Constipation Butorphanol Tartrate (Butorphanol 1 Mg/Ml Sdv) 1 mg IVPUSH Q1H PRN PRN Reason: Pain (severe 7-10) Carboprost Tromethamine (Carboprost Tromethamine 250 Mcg/1 Ml Amp) 250 mcg IM ASDIRECTED PRN PRN Reason: Post Hemorrhage Docusate Sodium (Docusate Sodium 100 Mg Cap) 100 mg PO Q12H PRN PRN Reason: Constipation Emollient Ointment (Lanolin 100% Cream 7 Gm Tube) 0 gm TOP ASDIRECTED PRN PRN Reason: Sore Nipples Oxytocin/Sodium Chloride (Oxytocin 30 Unit/500 Ml-Ns) 30 unit in 500 mls @ 500 mls/hr IV TITRATE [facility] Tranexamic Acid 1,000 mg/ (Sodium Chloride) 110 mls @ 660 mls/hr IV ONETIME PRN PRN Reason: Bleeding Lactated Ringer's (Ringers, Lactated) 1,000 mls @ 150 mls/hr IV ASDIRECTED [facility] Ibuprofen (Ibuprofen 400 Mg Tab) 400 mg PO Q4H PRN PRN Reason: Pain (mild 1-3) Ibuprofen (Ibuprofen 800 Mg Tab) 800 mg PO Q6H PRN PRN Reason: Pain (mild 1-3) Lidocaine HCl (Lidocaine 1% 50 Ml Mdv) 50 ml INJECT ONETIME PRN PRN Reason: Laceration repair Methylergonovine Maleate (Methylergonovine 0.2 Mg/1 Ml Amp) 0.2 mg IM ASDIRECTED PRN PRN Reason: Post Hemorrhage Misoprostol (Misoprostol 200 Mcg Tab) 200 mcg PO ONETIME PRN PRN Reason: Post Hemorrhage Nalbuphine HCl (Nalbuphine 10 Mg/1 Ml Vial) 10 mg IVPUSH Q1H PRN PRN Reason: Pain (severe 7-10) Oxycodone HCl (Oxycodone 5 Mg Tab) 5 mg PO Q2H PRN PRN Reason: Pain (severe 7-10) Sodium Chloride (Sodium Chloride 0.9% 10 Ml Syringe) 10 ml FLUSH ASDIRECTED PRN PRN Reason: Keep Vein Open Sodium Chloride (Sodium Chloride 0.9% 2.5 Ml Syringe) 2.5 ml FLUSH ASDIRECTED PRN PRN Reason: Keep Vein Open Sodium Chloride (Sodium Chloride 0.9% 10 Ml Sdv) 10 ml IV ASDIRECTED PRN PRN Reason: IV Use Sterile Water (Water For Irrigation,Sterile 1,000 Ml Container) 1,000 ml IRR ASDIRECTED PRN PRN Reason: delivery Witch Willa (Witch Willa Medicated Pads 40/Jar) 1 pad TOP ASDIRECTED PRN PRN Reason: comfort care Discontinued Medications Fentanyl (Fentanyl 100 Mcg/2 Ml Sdv) Confirm Administered Dose 200 mcg .ROUTE .STK-MED ONE Stop: 08/27/20 02:34 Ropivacaine (Naropin 0.2%) Confirm Administered Dose 200 mls @ as directed .ROUTE .STK-MED ONE Stop: 08/27/20 02:34 Cefazolin Sodium/Dextrose 1 gm (/ Premix) 50 mls @ 100 mls/hr IV ONETIME ONE Stop: 08/27/20 03:15 Last Admin: 08/27/20 03:10 Dose: 100 mls/hr Documented by: Oxytocin/Sodium Chloride (Oxytocin 30 Unit/500 Ml-Ns) Confirm Administered Dose 30 unit in 500 mls @ as directed .ROUTE .STK-MED ONE Stop: 08/27/20 03:01 - Interaction Support Person: Mother - Recovery Exam Fundal Tone: Firm Fundal Level: At Umbilicus Fundal Placement: Midline Lochia Amount: Small Lochia Color: Rubra/Red - Exam General: Alert, Cooperative Lungs: Normal Respiratory Effort Cardiovascular: Regular Rate, Regular Rhythm GI/Abdominal Exam: Normal Bowel Sounds, Soft Extremities: No: Pedal Edema, Lucas's Sign Skin: Warm, Dry, Intact Psy/Mental Status: Alert - Problem List & Annotations (1) Vaginal delivery SNOMED Code(s): 705187017 Code(s): O80 - ENCOUNTER FOR FULL-TERM UNCOMPLICATED DELIVERY Status: Acute Current Visit: No - Problem List Review Problem List Initiated/Reviewed/Updated: Yes - My Orders Last 24 Hours: My Active Orders 08/28/20 11:34 Ready for Discharge [RC] PER UNIT ROUTINE 08/28/20 11:35 medroxyPROGESTERone [Depo-Provera Contraceptive] 150 mg IM ONETIME ONE - Assessment Assessment:: 34 year old PPD 1 s/p spontaneous vaginal delivery History of illicit drug use - Plan Plan:: Patient feels well, she understands custody of her will be with [facility] social problems specialist. Infant is going to be transfered to level II nursery. She agrees to DMPA injection prior to discharge. She is not admitting her her meth usage, only marijuana. She would like to be discharged today. Discharge instructions reviewed. Follow up at [facility] in 4 weeks.
[2020-08-28 11:45] VITALS: BP 103/68; PULSE 64
== END 2020-08-28 13:52 | disposition home or self-care (01) | DRG 805 ==
LOC: MW.OBCHECK 01:57 → MW.OB 01:58 → MW.OBCHECK 02:00 → OBSVTOIN 05:10 → MW.OB 08:00
PROVIDERS: ADMIT Obstetrics & Gynecology; ATTEND Obstetrics & Gynecology
PROC: 10E0XZZ Delivery of Products of Conception, External Approach (ICD-10-PCS; principal; 2020-08-27)
PROC: 3E0R3BZ Introduction of Anesthetic Agent into Spinal Canal, Percutaneous Approach (ICD-10-PCS; 2020-08-27)
PROC: 00HU33Z Insertion of Infusion Device into Spinal Canal, Percutaneous Approach (ICD-10-PCS; 2020-08-27)
DX: O60.14X0 Preterm labor third trimester with preterm delivery third trimester, not applicable or unspecified (principal); O45.93 Premature separation of placenta, unspecified, third trimester; Z37.0 Single live birth; O99.334 Smoking (tobacco) complicating childbirth; Z3A.36 36 weeks gestation of pregnancy; Z20.822 Contact with and (suspected) exposure to COVID-19
CPT/HCPCS: 01967; 36415; 51702; 59025; 59409; 80305-QW; 82803; 85014; 85018; 85027; 86592; 86803; 86850; 86900; 86901; 87340; 87389; J0690; J1050; J2590; J2795; J3010; U0002

== ENCOUNTER 2020-11-26 12:38 | Emergency (ER) | payer SELFPAY ==
[2020-11-26] MEDS ORDERED: Sodium Chloride 0.9% 2.5 ML Syringe FLUSH PRN (12:47)
[2020-11-26] MEDS ORDERED: Sodium Chloride 0.9% 10 ML Syringe FLUSH PRN (12:47)
[2020-11-26] MEDS ORDERED: Dexamethasone 10 MG/ML SDV IVPUSH ONE (12:49)
--- NOTE | 2020-11-26 12:52 | EDM.PDOC ---
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 Pain with swallowing only on the right side feels a sensation of worsening swelling as well no posterior neck pain or neck stiffness no cough. Symptoms constant gradually progressive without alleviating factors or other associated symptoms Right Neck Pain Score (Numeric/FACES): 7 - Related Data Allergies Allergy/AdvReac Type Severity Reaction Status Date / Time erythromycin base Allergy Hives Verified 03/15/20 18:46 mushroom Allergy Swelling Verified 03/15/20 18:46 Penicillins Allergy Hives Verified 03/15/20 18:46 Past Medical History HEENT History: Reports: None Cardiovascular History: Reports: None Respiratory History: Reports: None Gastrointestinal History: Reports: None Genitourinary History: Reports: Pyelonephritis Other Genitourinary History: 'WEAK KIDNEYS" BOTTOM SANDER History: Reports: Musculoskeletal History: Reports: None Other Neuro History: LEMERE'S SYNDROME Psychiatric History: Reports: Anxiety Endocrine/Metabolic History: Reports: None Hematologic History: Reports: None Immunologic History: Reports: None Oncologic (Cancer) History: Reports: None Dermatologic History: Reports: Eczema - Infectious Disease History Infectious Disease History: Reports: Chicken Pox, Measles - Past Surgical History HEENT Surgical History: Reports: None Cardiovascular Surgical History: Reports: None GI Surgical History: Reports: None Female Surgical History: Reports: None Social & Family History - Family History HEENT: Reports: None Cardiac: Reports: None Respiratory: Reports: None GI: Reports: None : Reports: None OBGYN: Reports: , Other (See Below) Other OBGYN Family History: PCOS Musculoskeletal: Reports: Arthritis, Back pain, Chronic Neurological: Reports: Migraines, Parkinson's Psychiatric: Reports: Anxiety Endocrine/Metabolic: Reports: None Hematologic: Reports: None Immunologic: Reports: None Dermatologic: Reports: None Oncologic: Reports: Colon - Caffeine Use Caffeine Use: Reports: Coffee ED ROS ALLERGIC REACTION - Review of Systems Review Of Systems: See Below Free Text/Narrative/Comment: General: Per HPI Skin: No rash. Eyes: No vision problems. ENT: Per HPI Neck: No neck stiffness. Respiratory: No shortness of breath. Cardiac: No chest pain. Gastrointestinal: No nausea, vomiting or abdominal pain. Urinary: No dysuria. Musculoskeletal: No myalgias/arthralgias. Neurologic: No headache. ED EXAM GENERAL NO PERIP PULSE - Physical Exam Exam: See Below Text/Narrative:: General Appearance: No acute distress, appears comfortable Skin: No rash HEENT: No stridor, right-sided pharyngeal and SCM tenderness some trismus with 1.5 cm of mouth opening suggestion of right peritonsillar fullness but trismus inhibits good exam Neck: Normal range of motion Chest and Lungs: Bilateral breath sounds, clear to auscultation Cardiovascular: Regular rate and rhythm, no murmur Abdomen: Soft, non-tender Back: Normal Musculoskeletal: No edema or tenderness Neurologic: Awake, alert, no obvious deficits, moving all extremities Psychiatric: Appropriate, cooperative Course - Vital Signs Last Recorded V/S: Last Vital Signs Temp 99.3 F 11/26/20 16:03 Pulse 95 11/26/20 16:03 Resp 16 11/26/20 16:03 BP 115/83 11/26/20 16:03 Pulse Ox 99 11/26/20 16:03 - Orders/Labs/Meds Orders: Active Orders 24 hr Category Date Time Status Levofloxacin/Dextrose 5%-Water [Levaquin in D5W 750 MG/ Med 11/26/20 15:51 Active 150 ML] 750 mg Premix Bag 1 bag IV ONETIME Sodium Chloride 0.9% [Saline Flush] Med 11/26/20 12:47 Active 10 ml FLUSH ASDIRECTED PRN Sodium Chloride 0.9% [Saline Flush] Med 11/26/20 12:47 Active 2.5 ml FLUSH ASDIRECTED PRN Saline Lock Insert [OM.PC] Stat Oth 11/26/20 12:47 Ordered Medication Orders Levofloxacin/Dextrose 750 mg/ (Premix) 150 mls @ 100 mls/hr IV ONETIME ONE Stop: 11/26/20 17:20 Sodium Chloride (Sodium Chloride 0.9% 10 Ml Syringe) 10 ml FLUSH ASDIRECTED PRN PRN Reason: Keep Vein Open Last Admin: 11/26/20 12:56 Dose: 10 ml Documented by: SCHOLAC Sodium Chloride (Sodium Chloride 0.9% 2.5 Ml Syringe) 2.5 ml FLUSH ASDIRECTED PRN PRN Reason: Keep Vein Open Last Admin: 11/26/20 12:56 Dose: 2.5 ml Documented by: BRIJESH Labs: Laboratory Tests 11/26/20 11/26/20 11/26/20 Range/Units 12:50 12:50 13:17 WBC 17.84 H (4.0-11.0) K/uL RBC 4.80 (4.30-5.90) M/uL Hgb 14.7 (12.0-16.0) g/dL Hct 42.3 (36.0-46.0) % MCV 88.1 (80.0-98.0) fL MCH 30.6 (27.0-32.0) pg MCHC 34.8 (31.0-37.0) g/dL RDW Std Deviation 38.4 (28.0-62.0) fl RDW Coeff of [place] 12 (11.0-15.0) % Plt Count 236 (150-400) K/uL MPV 9.20 (7.40-12.00) fL Neut % (Auto) 80.7 H (48.0-80.0) % Lymph % (Auto) 11.4 L (16.0-40.0) % [place] % (Auto) 7.5 (0.0-15.0) % Eos % (Auto) 0.3 (0.0-7.0) % Baso % (Auto) 0.1 (0.0-1.5) % Neut # (Auto) 14.4 H (1.4-5.7) K/uL Lymph # (Auto) 2.0 (0.6-2.4) K/uL [place] # (Auto) 1.3 H (0.0-0.8) K/uL Eos # (Auto) 0.1 (0.0-0.7) K/uL Baso # (Auto) 0.0 (0.0-0.1) K/uL Nucleated RBC % 0.0 /100WBC Nucleated RBCs # 0 K/uL Sodium 135 L (136-145) mmol/L Potassium 4.0 (3.5-5.1) mmol/L Chloride 100 (98-107) mmol/L Carbon Dioxide 25.2 (21.0-32.0) mmol/L BUN 9 (7.0-18.0) mg/dL Creatinine 0.8 (0.6-1.0) mg/dL Est Cr Clr Drug Dosing 75.48 mL/min Estimated GFR (MDRD) > 60.0 ml/min Glucose 128 H (74-106) mg/dL Calcium 9.0 (8.5-10.1) mg/dL Total Bilirubin 0.7 (0.2-1.0) mg/dL AST 19 (15-37) IU/L ALT 27 (14-63) IU/L Alkaline Phosphatase 76 (46-116) U/L Total Protein 8.0 (6.4-8.2) g/dL Albumin 3.9 (3.4-5.0) g/dL Globulin 4.1 H (2.6-4.0) g/dL Albumin/Globulin Ratio 1.0 (0.9-1.6) Urine HCG, Qual NEGATIVE (NEGATIVE) Meds: Medications Generic Name Dose Route Start Last Admin Trade Name Freq PRN Reason Stop Dose Admin Levofloxacin/Dextrose 750 mg/ 150 mls @ 100 mls/hr 11/26/20 15:51 Premix IV 11/26/20 17:20 ONETIME ONE Sodium Chloride 10 ml 11/26/20 12:47 11/26/20 12:56 Sodium Chloride 0.9% 10 Ml Syringe FLUSH 10 ml ASDIRECTED PRN Administration Keep Vein Open Sodium Chloride 2.5 ml 11/26/20 12:47 11/26/20 12:56 Sodium Chloride 0.9% 2.5 Ml Syringe FLUSH 2.5 ml ASDIRECTED PRN Administration Keep Vein Open Discontinued Medications Generic Name Dose Route Start Last Admin Trade Name Freq PRN Reason Stop Dose Admin Dexamethasone 10 mg 11/26/20 12:49 11/26/20 12:56 Dexamethasone 10 Mg/Ml Sdv IVPUSH 11/26/20 12:50 10 mg ONETIME ONE Administration Clindamycin Phosphate 600 mg/ 50 mls @ 100 mls/hr 11/26/20 15:51 11/26/20 16:01 Premix IV 11/26/20 16:20 100 mls/hr ONETIME ONE Administration Departure - Departure Time of Disposition: 16:22 Disposition: DC/Tfer to Acute Hospital 02 Condition: Good Clinical Impression: Peritonsillar abscess - Discharge Information *PRESCRIPTION DRUG MONITORING PROGRAM REVIEWED*: Not Applicable *COPY OF PRESCRIPTION DRUG MONITORING REPORT IN PATIENT KALEB: Not Applicable Referrals: PCP,None [Primary Care Provider] - Forms: ED Department Discharge Sepsis Event Note (ED) - Focused Exam Vital Signs: Vital Signs Temp Temp Pulse Resp BP Pulse Ox 11/26/20 16:03 99.3 F 95 16 115/83 99 11/26/20 15:20 91 116/77 98 11/26/20 14:31 97 114/84 94 L 11/26/20 13:20 86 122/81 99 11/26/20 12:48 97.8 F 92 16 123/84 100 - My Orders Last 24 Hours: My Active Orders 11/26/20 12:47 Sodium Chloride 0.9% [Saline Flush] 10 ml FLUSH ASDIRECTED PRN Sodium Chloride 0.9% [Saline Flush] 2.5 ml FLUSH ASDIRECTED PRN Saline Lock Insert [OM.PC] Stat 11/26/20 15:51 Levofloxacin/Dextrose 5%-Water [Levaquin in D5W 750 MG/150 ML] 750 mg Premix Bag 1 bag IV ONETIME - Assessment/Plan Last 24 Hours: My Active Orders 11/26/20 12:47 Sodium Chloride 0.9% [Saline Flush] 10 ml FLUSH ASDIRECTED PRN Sodium Chloride 0.9% [Saline Flush] 2.5 ml FLUSH ASDIRECTED PRN Saline Lock Insert [OM.PC] Stat 11/26/20 15:51 Levofloxacin/Dextrose 5%-Water [Levaquin in D5W 750 MG/150 ML] 750 mg Premix Bag 1 bag IV ONETIME Assessment:: 34-year-old female presenting with unilateral neck pain/sore throat. Recurrent Lemierre's syndrome is a consideration. However LINING BASTER would be more likely RPA felt less likely but also possible there is no clear submental or sublingual swelling that would suggest Axel's angina but this is a consideration as well. Given her sensation of throat closure though there is no stridor and vital signs are now good Decadron will be given labs and CT of the neck with contrast are pending. 1600: Patient's sensation of swallowing is somewhat improved with the Decadron. However, CT scan shows likely developing peritonsillar abscess as well as concern for developing retropharyngeal abscess. Given this I do think patient requires transfer for ENT evaluation. Though we could potentially attempt bedside drainage of a peritonsillar abscess the concern for retropharyngeal abscess indicates the need for subspecialty involvement. Patient has a penicillin allergy so will cover with clindamycin and Levaquin for now. [facility] is without [facility] bed capacity. Will trial [facility] [place]. If ey are full as well then can try the [facility]. Patient discussed with [facility] they do have Dr. Heather Chao rehabilitation services coordinator for otolaryngology as well as some medical beds available. Dr. Chao agrees with need for admission and IV abx. She will see the patient tomorrow to see if any drainage of the LINING BASTER is needed (this is expected to be the case). Recommends transfer to [place] onto the hospitalist service. Patient also discussed with Dr. Browning (hospitalist). Dr. Browning accepts the patient for transfer. Patient is felt stable for transfer via EMS.
[2020-11-26 13:29] LABS: BLOOD UREA NITROGEN,BUN 9 mg/dL (7.0-18.0); CARBON DIOXIDE,CO2 25.2 mmol/L (21.0-32.0); CHLORIDE,CL 100 mmol/L (98-107); GLUCOSE RANDOM 128 mg/dL (74-106); SODIUM,NA 135 mmol/L (136-145)
--- NOTE | 2020-11-26 15:38 | CT ---
INDICATION: Right neck and throat pain. History of Lemierre`s syndrome. Peritonsillar abscess is considered. TECHNIQUE: Volumetric helical scanning of the neck was performed with 100 cc of Isovue 370 contrast material IV. Coronal and sagittal reconstructions were obtained. COMPARISON: None. FINDINGS: The right palatine tonsil is enlarged and right parapharyngeal fat is compressed and edematous. On images 77-91 of series 201, a curvilinear, low-attenuation abnormality in the right peritonsillar region is demonstrated and suspect represent developing abscess. This measures roughly 3 x 0.5 x 0.5 cm. In addition, on images 82-114, decreased attenuation and positive mass effect is demonstrated in the right retropharyngeal region related to edema/cellulitis. An abscess may be developing in this region as well. Mild right cervical lymphadenopathy is noted. The airway is normal. The larynx is unremarkable. The salivary and thyroid glands are within normal limits. No vascular abnormality is demonstrated. The visualized paranasal and mastoid sinuses are clear. The lung apices are essentially clear. No significant bony abnormality is demonstrated. IMPRESSION: 1. Right palatine tonsillitis and suspected developing 3 x 0.5 x 0.5 cm peritonsillar abscess. Right retropharyngeal cellulitis and possible early abscess formation as well. 2. Mild right cervical lymphadenopathy. Please note that all CT scans at this facility use dose modulation, iterative reconstruction, and/or weight-based dosing when appropriate to reduce radiation dose to as low as reasonably achievable. Dictated by Lencho Stevens MD @ 11/26/2020 3:36:07 PM (Electronically Signed)
[2020-11-26] MEDS ORDERED: Levofloxacin/Dextrose 5%-Water 750 MG in Premix Bag 1 BAG IV ONE (15:51)
[2020-11-26] MEDS ORDERED: Clindamycin Phosphate in D5W 600 MG in Premix Bag 1 BAG IV ONE ×2 (15:51)
[2020-11-26 17:10] VITALS: BP 112/89
[2020-11-26 18:12] VITALS: PULSE 107
== END 2020-11-26 18:10 ==
LOC: MW.ED 12:38
DX: J36 Peritonsillar abscess (principal); Z88.1 Allergy status to other antibiotic agents; Z88.0 Allergy status to penicillin; Z91.018 Allergy to other foods; Z20.822 Contact with and (suspected) exposure to COVID-19
CPT/HCPCS: 36415; 70491; 70491-26; 80053; 81025; 85025; 96365; 96367; 96375; 99284; 99285-25; J1100; J1956; J3490; U0002

== ENCOUNTER 2022-02-15 20:02 | Emergency (ER) | payer SELFPAY ==
[2022-02-15 21:08] VITALS: BP 126/81; PULSE 72
[2022-02-15] MEDS ORDERED: Ibuprofen 600 MG Tab PO ONE (22:09)
[2022-02-15] MEDS ORDERED: Lidocaine 2% Viscous Solution 15 ML UD PO ONE (22:09)
[2022-02-15] MEDS ORDERED: Cephalexin 500 MG Cap PO ONE (22:09)
[2022-02-15] MEDS ORDERED: Benzocaine 20% Topical Spray UD MUCMEM ONE (22:09)
== END 2022-02-15 22:31 | disposition home or self-care (01) ==
LOC: MW.ED 20:02
DX: K03.81 Cracked tooth (principal); Z88.1 Allergy status to other antibiotic agents; Z88.0 Allergy status to penicillin; Z91.018 Allergy to other foods
CPT/HCPCS: 99282; A9270

== ENCOUNTER 2022-05-27 12:09 | Observation (INO) | payer SELFPAY ==
[2022-05-27] MEDS ORDERED: methylPREDNISolone Sodium Succinate 125 MG/2 ML SDV IVPUSH ONE (12:17)
[2022-05-27] MEDS ORDERED: diphenhydrAMINE 50 MG/ML SDV IVPUSH ONE (12:17)
[2022-05-27] MEDS ORDERED: Sodium Chloride 0.9% 1,000 ML IV ONE (12:17)
[2022-05-27] MEDS ORDERED: Ketorolac 30 MG/ML SDV IVPUSH ONE (12:22)
[2022-05-27 13:13] LABS: BLOOD UREA NITROGEN,BUN 12 mg/dL (7.0-18.0); CARBON DIOXIDE,CO2 30.7 mmol/L (21.0-32.0); CHLORIDE,CL 96 mmol/L (98-107); ESTIMATED GFR 116 mL/min (>60); GLUCOSE RANDOM 106 mg/dL (74-106); POTASSIUM,K 3.9 mmol/L (3.5-5.1); SODIUM,NA 134 mmol/L (136-145)
[2022-05-27] MEDS ORDERED: methylPREDNISolone Sodium Succinate 125 MG/2 ML SDV ONE (13:16)
[2022-05-27] MEDS ORDERED: Iopamidol 755 MG/ML 500 ML Multipack Bottle IVPUSH ONE (14:17)
[2022-05-27] MEDS ORDERED: Clindamycin Phosphate in D5W 600 MG in Premix Bag 1 BAG IV ONE ×2 (15:11)
[2022-05-27 16:23] LABS: CORONAVIRUS COVID-19 NAA NEGATIVE (NEGATIVE); INFLUENZA A NAA NEGATIVE (NEGATIVE); INFLUENZA B NAA NEGATIVE (NEGATIVE)
[2022-05-27] MEDS ORDERED: Acetaminophen 325 MG Tab PO PRN (20:00)
[2022-05-27] MEDS: Clindamycin Phosphate in D5W 600 MG in Premix Bag 1 BAG IV SCH ×2 (21:46)
[2022-05-27] MEDS: Ibuprofen 400 MG Tab PO PRN (21:47)
[2022-05-28] MEDS ORDERED: Nicotine 14 MG/24 Hr Patch TRDERM SCH (00:15)
[2022-05-28] MEDS: Clindamycin Phosphate in D5W 600 MG in Premix Bag 1 BAG IV SCH ×4 (03:51→08:26)
[2022-05-28] MEDS: Nicotine 14 MG/24 Hr Patch TRDERM SCH ×2 (03:52→09:18)
[2022-05-28 06:18] LABS: CARBON DIOXIDE,CO2 27.6 mmol/L (21.0-32.0); POTASSIUM,K 3.7 mmol/L (3.5-5.1)
[2022-05-28] MEDS: Ibuprofen 400 MG Tab PO PRN (08:25)
[2022-05-28 12:29] VITALS: BP 115/63; PULSE 77
== END 2022-05-28 13:15 | disposition home or self-care (01) ==
LOC: MW.ED 12:09 → MW.MS 15:21
PROVIDERS: ADMIT Internal Medicine; ATTEND Internal Medicine
DX: J36 Peritonsillar abscess (principal); F41.9 Anxiety disorder, unspecified; G43.909 Migraine, unspecified, not intractable, without status migrainosus; G20 Parkinson's disease; F17.210 Nicotine dependence, cigarettes, uncomplicated; Z20.822 Contact with and (suspected) exposure to COVID-19; Z88.0 Allergy status to penicillin; Z88.1 Allergy status to other antibiotic agents; Z91.018 Allergy to other foods; Z79.899 Other long term (current) drug therapy
CPT/HCPCS: 0240U; 36415; 70491; 80048; 80053; 80305; 81003; 83605; 84703; 85025; 87040; 96361; 96374; 96375; 99284; A9270; J1200; J1885; J2930; J3490; J7030; Q9967; 96365; 96376; 99221; G0378